=== PATIENT | male | born 1965 | race Caucasian/White ===

== ENCOUNTER → 2019-05-03 | Outpatient (CLI) | payer BC ==
--- NOTE | 2019-05-07 09:22 | ECHOF ---
Referral Reason:R60.9 Edema MEASUREMENTS -------- HEIGHT: 175.3 cm WEIGHT: 113.4 kg BP: 132/72 RVIDd: 3.3 cm (< 3.3) IVSd: 1.4 cm (0.6 - 1.1) LVIDd: 4.9 cm (3.9 - 5.3) LVPWd: 1.5 cm (0.6 - 1.1) IVSs: 1.7 cm LVIDs: 3.2 cm LVPWs: 2.1 cm LAESV Index (A-L): 31.77 ml/m Ao Diam: 3.0 cm (2.0 - 3.7) AV Cusp: 2.0 cm (1.5 - 2.6) LA Diam: 3.6 cm (2.7 - 3.8) MV EXCURSION: 17.701 mm (> 18.000) MV EF SLOPE: 150 mm/s (70 - 150) EPSS: 1.2 cm MV E Arnulfo: 0.95 m/s MV DecT: 191 ms MV A Arnulfo: 0.91 m/s MV E/A Ratio: 1.04 RAP: 5.00 mmHg RVSP: 27.98 mmHg FINDINGS -------- Sinus rhythm. This was a technically adequate study. The left ventricular size is normal. There is mild concentric left ventricular hypertrophy. There is normal global left ventricular contractility. Overall left ventricular systolic function is nor mal with, an EF between 60 - 65 %. The diastolic filling pattern is normal for the age of the patie nt 9.42. The right ventricle is normal in size. LA is midly dilated 29-33ml/m2. The right atrial size is normal. Interatrial and interventricular septum intact. The aortic valve was not well visualized. There is no evidence of aortic regurgitation. There is no evidence of aortic stenosis. Mild mitral regurgitation is present. Mild tricuspid regurgitation present. There is no evidence of pulmonary hypertension. The right v entricular systolic pressure, as measured by Doppler, is 27.98mmHg. There is no pulmonic regurgitation present. The aortic root size is normal. Normal inferior vena cava with normal inspiratory collapse consistent with estimated right atrial pre ssure of 5 mmHg. CONCLUSIONS -------- 1. Sinus rhythm. 2. This was a technically adequate study. 3. The left ventricular size is normal. 4. There is mild concentric left ventricular hypertrophy. 5. There is normal global left ventricular contractility. 6. Overall left ventricular systolic function is normal with, an EF between 60 - 65 %. 7. The diastolic filling pattern is normal for the age of the patient 9.42 8. The right ventricle is normal in size. 9. LA is midly dilated 29-33ml/m2. 10. The right atrial size is normal. 11. Interatrial and interventricular septum intact. 12. The aortic valve was not well visualized. 13. There is no evidence of aortic regurgitation. 14. There is no evidence of aortic stenosis. 15. Mild mitral regurgitation is present. 16. Mild tricuspid regurgitation present. 17. There is no evidence of pulmonary hypertension. 18. The right ventricular systolic pressure, as measured by Doppler, is 27.98mmHg. 19. There is no pulmonic regurgitation present. 20. The aortic root size is normal. 21. Normal inferior vena cava with normal inspiratory collapse consistent with estimated right atrial pressure of 5 mmHg. HAND SALTER: Roxane Gaitan RDCS
== END | disposition home or self-care (01) ==
LOC: RADECHMAIN 12:35
PROVIDERS: ATTEND Internal Medicine Hematology & Oncology
DX: I08.1 Rheumatic disorders of both mitral and tricuspid valves (principal)
CPT/HCPCS: 93306

== ENCOUNTER → 2019-08-15 | Outpatient (CLI) | payer BC ==
--- NOTE | 2019-08-15 13:20 | XR ---
Bilateral hands HISTORY: Bilateral hand pain 2 views of each hand are submitted There is widening of the scapholunate distance in the right wrist. Some sclerotic density present dis anuj metaphysis of the right radius. Bone mineralization is otherwise maintained. IMPRESSION: Scapholunate distance appears increased right wrist with associated sclerosis distal righ t radial metaphysis, correlate for history of trauma, scapholunate dissociation.
== END | disposition home or self-care (01) ==
LOC: RADXRMAIN 08:31
PROVIDERS: ATTEND Orthopaedic Surgery
DX: M79.642 Pain in left hand (principal); M79.641 Pain in right hand

== ENCOUNTER → 2019-09-07 | Day surgery (SDC) | payer BC ==
[2019-09-05 13:05] VITALS: BMI 35.4
--- NOTE | 2019-09-06 11:14 | HP ---
HISTORY AND PHYSICAL CHIEF COMPLAINT: Right hand pain and numbness. 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 It has worsened recently. He notes diffuse numbness in all digits. It bothers him with gripping and grasping and at night. He has tried bracing and medications for this. PAST MEDICAL HISTORY: Significant for hypercholesterolemia, hypertension, type 2 diabetes, and chronic myeloid leukemia, coronary artery disease. PAST SURGICAL HISTORY: Significant for cardiac stent placement and shoulder arthroscopy as well as appendectomy. CURRENT MEDICATIONS: 1. Bupropion. 2. Metoprolol. 3. Atorvastatin. 4. Enalapril. 5. Gabapentin. 6. Requip. ALLERGIES: He denies drug allergies. FAMILY HISTORY: Noncontributory. SOCIAL HISTORY: Negative for current tobacco or alcohol use. REVIEW OF SYSTEMS: Sixteen-point review of systems otherwise reviewed and is noncontributory. PHYSICAL EXAMINATION: On examination, the patient is approximately 5 feet 9 inches, 240 pounds of endomorphic habitus. HEENT exam is nonfocal. NECK: Supple. He has painless cervical spine motion with negative Spurling's. On examination of the right wrist, he has a positive Tinel's at the carpal canal. He has a positive carpal tunnel compression test. Light touch is diffusely diminished in the right digits. Adductor pollicis brevis strength is 5 minus over 5. He has no significant thenar wasting. EMG report right upper extremity shows median motor latency at the carpal canal 4.22, sensory latency 4.08. IMPRESSION: 1. Symptomatic right carpal tunnel syndrome. 2. History of chronic myeloid leukemia. 3. Zml-rahfmnr-kuvlkziuc diabetes. RECOMMENDATIONS: I talked to the patient at length regarding his condition along with treatment options. At this point, he notes he is quite symptomatic and opts to proceed with surgery. We will plan to proceed with right carpal tunnel release utilizing local anesthetic and IV sedation. Risks and benefits were discussed at length in layman's terms. MMODL / IJN: [id number] /
[~2019-09-07] MED LIST: BUPIVACAINE (PF) 0.25% 30 ML VIAL SQ ONE; DEXAMETHASONE SOD PHOSPHATE 10 MG/ML 1 ML VIAL IV ONE; HYDROmorphone 0.5 MG/0.5 ML SYRINGE IVP PRN; LACTATED RINGERS 1,000 ML IV SCH; LIDOCAINE 1% 20 ML VIAL (10MG/ML) FOR IV START INTRADERMA PRN; LIDOCAINE 1% INJ 10MG/ML (20 ML MDV) ONE; MIDAZOLAM 2 MG/2 ML VIAL IV PRN; MIDAZOLAM 2 MG/2 ML VIAL ONE; ONDANSETRON 4 MG/2 ML VIAL IVP ONE; PROPOFOL 10 MG/ML 20 ML VIAL IV ONE; SCOPOLAMINE 1.5MG/72HR PATCH TRANSDERM ONE; fentaNYL (PF) 50 MCG/ML 2 ML AMP ONE
[2019-09-07 11:26] VITALS: TEMP 97.5
--- NOTE | 2019-09-07 12:18 | P.OP ---
Date of Procedure: 09/07/19 Preoperative Diagnosis: Symptomatic right carpal tunnel syndrome Postoperative Diagnosis: Same Procedure(s) Performed: Right carpal tunnel release Anesthesia: MAC, local Surgeon: Tom Saravia Estimated Blood Loss (ml): 1 Pathology: none sent Condition: stable Disposition: PACU Indications for Procedure: The patient's a 53-year-old male presents with persistent right hand pain and numbness secondary to carpal tunnel syndrome despite conservative measures. A discussion of the risks and benefits of operative intervention versus continued conservative measures was made with the patient. He opted to proceed. Specific risks of the surgery to include infection, neurovascular injury, development of blood clots, possible incomplete resolution of symptoms, possible recurrence of symptoms and need for subsequent procedures was discussed. Informed consent was obtained. Operative Findings: As below Description of Procedure: The patient was brought to the operating room, and after induction of IV sedation the right upper extremity was prepped and draped in normal fashion. The proposed incision site was outlined skin marker in line with the radial aspect the fourth ray extending from the volar wrist crease distally 2-1/2 cm. One quarter percent plain Marcaine was injected into the proposed incision site. 9 mL was utilized. The tourniquet was inflated to 250 mmHg. The skin incision was then made. The skin was incised sharply. Subcutaneous tissues were divided sharply the superficial palmar fascia was identified and split in line with the skin incision. The transverse carpal ligament was identified and transected under direct visualization distally to level the palmar fat pad. Proximal was taken level of the volar wrist crease. A plane above and below the transverse carpal ligament was then bluntly developed with tenotomies. The confluence of the distal forearm fascia and the transverse carpal ligament was then transected under direct visualization proximally with the tines pointed in the ulnar direction. I felt this was adequate proximal release. Neural lysis was not performed. The wound was irrigated with normal saline. Electrocautery was used for hemostasis. The skin was reapproximated with simple 3-0 nylon sutures. A sterile dressing was applied. The tourniquet was deflated with less than 15 minutes total tourniquet time. Patient was awoken from sedation and transferred to the recovery room in good condition. Blood loss was estimated 1 mL. No complications were incurred. Sponge and needle counts were correct at the end the case.
[2019-09-07 12:21] VITALS: RESP 17
[2019-09-07 12:29] VITALS: BP 114/60; PULSE 70
== END | disposition home or self-care (01) ==
LOC: OR 10:42
PROVIDERS: ATTEND Orthopaedic Surgery
DX: G56.01 Carpal tunnel syndrome, right upper limb (principal); E78.00 Pure hypercholesterolemia, unspecified; I10 Essential (primary) hypertension; E11.9 Type 2 diabetes mellitus without complications; C92.10 Chronic myeloid leukemia, BCR/ABL-positive, not having achieved remission; I25.10 Atherosclerotic heart disease of native coronary artery without angina pectoris; E78.5 Hyperlipidemia, unspecified; G25.81 Restless legs syndrome; Z87.891 Personal history of nicotine dependence; Z79.899 Other long term (current) drug therapy; Z95.5 Presence of coronary angioplasty implant and graft; Z98.890 Other specified postprocedural states; Z90.49 Acquired absence of other specified parts of digestive tract
CPT/HCPCS: 64721; J2250; J1100; J0690; J2405; J2001; J3010; J2704

== ENCOUNTER → 2019-10-12 | Day surgery (SDC) | payer BC ==
[2019-10-11 09:01] VITALS: BMI 35.4
--- NOTE | 2019-10-11 10:06 | HP ---
HISTORY AND PHYSICAL CHIEF COMPLAINT: Left hand pain and numbness. 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 He has tried medications and bracing. He has noticed difficulty with gripping and grasping along with night symptoms. PAST MEDICAL HISTORY: Significant for hypercholesterolemia, type 2 diabetes, hypertension, and chronic myeloid leukemia. PAST SURGICAL HISTORY: Significant for coronary stent placement, shoulder arthroscopy, appendectomy, and recent right carpal tunnel release. 16 POINT REVIEW OF SYSTEMS: Otherwise reviewed and is noncontributory. CURRENT MEDICATIONS: 1. Metoprolol. 2. Bupropion. 3. Atorvastatin. 4. Enalapril. 5. Gabapentin. 6. Requip. 7. Ropinirole. 8. . He denies drug allergies. FAMILY HISTORY: Noncontributory. SOCIAL HISTORY: Negative for current tobacco or alcohol use. 16-POINT REVIEW OF SYSTEMS: Otherwise reviewed and is noncontributory. PHYSICAL EXAMINATION: On examination, the patient is approximately 5 foot 9, 240 pounds, of endomorphic habitus. HEENT: Exam is nonfocal. NECK: Supple. He has nontender about the left shoulder and elbow. On examination of the left wrist, he has a positive Tinel's over the carpal canal. Carpal tunnel compression test is positive. Adductor pollicis brevis strength is 5-/5. Light touch is grossly intact distally. IMPRESSION: 1. Symptomatic left carpal tunnel syndrome. 2. History of chronic myeloid leukemia. RECOMMENDATIONS: I talked to the patient at length regarding his condition along with treatment options. At this point, he is symptomatic despite conservative measures. After thorough discussion, he opts to proceed with surgery. We will plan to proceed with left carpal tunnel release. Will perform that likely as an outpatient procedure utilizing local anesthetic and IV sedation. Risks and benefits were discussed at length. MMODL / IJN: [id number] /
[~2019-10-12] MED LIST changes: +KETOROLAC 30 MG/ML 1 ML VIAL ONE; +LIDOCAINE 1% 20 ML VIAL (10MG/ML) FOR IV START INTRADERMA ONE; -LIDOCAINE 1% 20 ML VIAL (10MG/ML) FOR IV START INTRADERMA PRN; -LIDOCAINE 1% INJ 10MG/ML (20 ML MDV) ONE
[2019-10-12 10:37] VITALS: RESP 16; TEMP 98.1
--- NOTE | 2019-10-12 12:20 | P.OP ---
Date of Procedure: 10/12/19 Preoperative Diagnosis: symptomatic left carpal tunnel syndrome Postoperative Diagnosis: same Procedure(s) Performed: left carpal tunnel release Anesthesia: MAC, local Surgeon: Tom Saravia Estimated Blood Loss (ml): 1 Pathology: none sent Condition: stable Disposition: PACU Indications for Procedure: The patient's a 53-year-old male who presents with progressive left hand pain and numbness secondary to carpal tunnel syndrome despite conservative measures. A discussion of the risks and benefits of operative intervention versus continued conservative measures was made with patient. He opted proceed with surgery. Operative risks to include infection, neurovascular injury, development of blood clots, possible incomplete resolution of symptoms, possible recurrence of symptoms need for subsequent procedures was discussed. Informed consent was obtained. Operative Findings: as below Description of Procedure: The patient was brought to the operating room, and after induction of IV sedation the left upper extremity was prepped and draped in normal fashion. The proposed incision site was outlined skin marker in line with the radial aspect the fourth ray extending from the volar wrist crease distally 2-1/2 cm. One quarter percent plain Marcaine was injected into the proposed incision site. 9 mL was utilized. The tourniquet was inflated to 250 mmHg. The skin incision was then made. The skin was incised sharply. Subcutaneous tissues were divided sharply the superficial palmar fascia was identified and split in line with the skin incision. The transverse carpal ligament was identified and transected under direct visualization distally to level the palmar fat pad. Proximal was taken level of the volar wrist crease. A plane above and below the transverse carpal ligament was then bluntly developed with tenotomies. The confluence of the distal forearm fascia and the transverse carpal ligament was then transected under direct visualization proximally with the tines pointed in the ulnar dire ction. I felt this was adequate proximal release. Neural lysis was not performed. The wound was irrigated with normal saline. Electrocautery was used for hemostasis. The skin was reapproximated with simple 3-0 nylon sutures. A sterile dressing was applied. The tourniquet was deflated with less than 15 minutes total tourniquet time. Patient was awoken from sedation and transferred to the recovery room in good condition. Blood loss was estimated 1 mL. No complications were incurred. Sponge and needle counts were correct at the end the case.
[2019-10-12 12:37] VITALS: BP 105/59; PULSE 62
== END | disposition home or self-care (01) ==
LOC: OR 09:59
PROVIDERS: ATTEND Orthopaedic Surgery
DX: G56.02 Carpal tunnel syndrome, left upper limb (principal); E78.00 Pure hypercholesterolemia, unspecified; E11.9 Type 2 diabetes mellitus without complications; I10 Essential (primary) hypertension; C92.10 Chronic myeloid leukemia, BCR/ABL-positive, not having achieved remission; Z95.5 Presence of coronary angioplasty implant and graft; E78.5 Hyperlipidemia, unspecified; Z79.899 Other long term (current) drug therapy
CPT/HCPCS: 64721; J2250; J1100; J2405; J3010; J1885; J2704

== ENCOUNTER → 2019-12-12 | Outpatient (CLI) | payer BC ==
[2019-12-12 12:54] LABS: C Reactive Protein <5.0 mg/L (<10.0)
--- NOTE | 2019-12-12 16:15 | XR ---
Bilateral feet history: Bilateral tarsal pain 3 views of each foot are submitted on a total 6 images Degenerative changes are present at the metatarsophalangeal joint of the first digit. Bone mineraliza tion, joint spaces and alignment are otherwise maintained. No fracture or dislocation. IMPRESSION: Osteoarthritis first digits.
[2019-12-12 19:08] LABS: Rheumatoid Factor, Qnt 6 IU/mL (0-15)
[2019-12-12 19:41] LABS: Cyclic Citrull Pep IgG Unit 2.1 U/mL; Cyclic Citrullinated Pep IgG NEGATIVE (NEGATIVE)
== END | disposition home or self-care (01) ==
LOC: RADXRMAIN 11:23
PROVIDERS: ATTEND Family Medicine
DX: M19.071 Primary osteoarthritis, right ankle and foot (principal); M19.072 Primary osteoarthritis, left ankle and foot
CPT/HCPCS: 86140; 86200; 86431

== ENCOUNTER → 2020-04-02 | Outpatient (CLI) | payer BC ==
--- NOTE | 2020-04-02 14:57 | XR ---
EXAMINATION TYPE: XR chest 2V DATE OF EXAM: 04/02/2020 COMPARISON: Prior chest 10/26/2015 HISTORY: Chronic myeloid leukemia, I 25.2 TECHNIQUE: Frontal and lateral views of the chest are obtained. FINDINGS: There is blunting of the right costophrenic angle, there may be pleural effusion. No evide nt pneumothorax. Interstitium is increased. The cardiac silhouette size is enlarged, patient is rotat ed. The osseous structures are intact. IMPRESSION: Correlate for possible pulmonary venous hypertension and interstitial edema, possible sm all effusion. A Yellow level critical message alert has been initiated for Jose A Diaz MD via the [employer] System on 04/02/2020 2:54 PM. This message alert has been sent to Jose A Diaz MD via e preferences provided by the clinician for the receipt of Radiology Critical Findings. Message ID [id number].
== END | disposition home or self-care (01) ==
LOC: RADXRMAIN 14:39
PROVIDERS: ATTEND Internal Medicine Hematology & Oncology
DX: C92.10 Chronic myeloid leukemia, BCR/ABL-positive, not having achieved remission (principal); D72.829 Elevated white blood cell count, unspecified; I25.2 Old myocardial infarction; R79.89 Other specified abnormal findings of blood chemistry
CPT/HCPCS: 71046

== ENCOUNTER → 2020-04-09 | Outpatient (CLI) | payer BC ==
--- NOTE | 2020-04-09 10:28 | ECHOF ---
Referral Reason:R60.9 edema MEASUREMENTS -------- HEIGHT: 177.8 cm WEIGHT: 111.1 kg BP: RVIDd: 2.7 cm (< 3.3) IVSd: 1.2 cm (0.6 - 1.1) LVIDd: 4.8 cm (3.9 - 5.3) LVPWd: 1.5 cm (0.6 - 1.1) IVSs: 2.0 cm LVIDs: 3.6 cm LVPWs: 1.8 cm LAESV Index (A-L): 28.43 ml/m Ao Diam: 3.2 cm (2.0 - 3.7) AV Cusp: 1.7 cm (1.5 - 2.6) LA Diam: 3.6 cm (2.7 - 3.8) MV EXCURSION: 16.312 mm (> 18.000) MV EF SLOPE: 157 mm/s (70 - 150) EPSS: 0.7 cm MV E Arnulfo: 1.10 m/s MV DecT: 228 ms MV A Arnulfo: 0.85 m/s MV E/A Ratio: 1.30 RAP: 5.00 mmHg RVSP: 27.49 mmHg FINDINGS -------- Sinus rhythm. This was a technically adequate study. The left ventricular size is normal. There is mild concentric left ventricular hypertrophy. Overa ll left ventricular systolic function is low-normal with, an EF between 50 - 55 %. Basal anterior L V wall motion is hypokinetic. Basal inferolateral hypokinesis. The right ventricle is normal in size. The left atrial size is normal. Normal LA size by volume 22+/-6 ml/m2. The right atrial size is normal. The aortic valve is trileaflet and appears structurally normal. The mitral valve is normal. There is trace mitral regurgitation. The tricuspid valve appears structurally normal. Trace tricuspid regurgitation present. Right whit tricular systolic pressure is normal at < 35 mmHg. There is no pulmonic regurgitation present. The aortic root size is normal. Normal inferior vena cava with normal inspiratory collapse consistent with estimated right atrial pre ssure of 5 mmHg. There is no pericardial effusion. CONCLUSIONS -------- 1. Sinus rhythm. 2. This was a technically adequate study. 3. The left ventricular size is normal. 4. There is mild concentric left ventricular hypertrophy. 5. Overall left ventricular systolic function is low-normal with, an EF between 50 - 55 %. 6. Basal anterior LV wall motion is hypokinetic. 7. Basal inferolateral hypokinesis. 8. The right ventricle is normal in size. 9. The left atrial size is normal. 10. Normal LA size by volume 22+/-6 ml/m2. 11. The right atrial size is normal. 12. The aortic valve is trileaflet and appears structurally normal. 13. The mitral valve is normal. 14. There is trace mitral regurgitation. 15. The tricuspid valve appears structurally normal. 16. Trace tricuspid regurgitation present. 17. Right ventricular systolic pressure is normal at < 35 mmHg. 18. There is no pulmonic regurgitation present. 19. The aortic root size is normal. 20. Normal inferior vena cava with normal inspiratory collapse consistent with estimated right atrial pressure of 5 mmHg. 21. There is no pericardial effusion. MECHANICAL ENGINEERING OFFICER: Pricilla Dupont RDCS
== END | disposition home or self-care (01) ==
LOC: RADECHMAIN 08:15
PROVIDERS: ATTEND Internal Medicine Hematology & Oncology
DX: I08.1 Rheumatic disorders of both mitral and tricuspid valves (principal)
CPT/HCPCS: 93306

== ENCOUNTER → 2020-04-15 | Outpatient (CLI) | payer BC ==
[2020-04-15 17:58] LABS: African American GFR (CKD) 87.7 (60.0-200.0); Non-African American GFR(CKD) 75.7 (60.0-200.0)
== END | disposition home or self-care (01) ==
LOC: LABWHC1 07:33
PROVIDERS: ATTEND Internal Medicine Hematology & Oncology
DX: J44.9 Chronic obstructive pulmonary disease, unspecified (principal); R91.8 Other nonspecific abnormal finding of lung field
CPT/HCPCS: 36415; 82565; 84520

== ENCOUNTER → 2020-04-21 | Outpatient (CLI) | payer BC ==
--- NOTE | 2020-04-21 10:05 | CT ---
EXAMINATION TYPE: CT chest w con DATE OF EXAM: 04/21/2020 COMPARISON: Prior chest x-ray 04/02/2020 HISTORY: Abnormal x-ray CT DLP: 533.4 mGycm Automated exposure control for dose reduction was used. CONTRAST: CT scan of the chest is performed with IV Contrast, patient injected with 100 mL of Isovue 300. FINDINGS: LUNGS: The lungs are grossly clear, there is no concerning parenchymal mass or nodule identified. T here is a right pleural effusion as suspected on plain film.. The tracheobronchial tree is patent. MEDIASTINUM: There are no greater than 1 cm hilar or mediastinal lymph nodes. No pericardial effusi on is seen. There are coronary artery calcifications. AORTA: Ascending aorta measures approximately 4.1 cm. Proximal descending aorta is also ectatic at 3 .2 cm.. OTHER: Probable splenules noted at the level of the spleen hilum.. IMPRESSION: Right pleural effusion is confirmed. Coronary artery disease. Ascending aortic aneurysm. Coronary artery disease.
== END | disposition home or self-care (01) ==
LOC: RADCTMAIN 06:50
PROVIDERS: ATTEND Family Medicine
DX: J90 Pleural effusion, not elsewhere classified (principal); I25.10 Atherosclerotic heart disease of native coronary artery without angina pectoris; I71.2 Thoracic aortic aneurysm, without rupture; J44.9 Chronic obstructive pulmonary disease, unspecified
CPT/HCPCS: 71260; Q9967

== ENCOUNTER 2020-05-01 16:15 | Inpatient (IN) | payer BC ==
[2020-05-01 20:21] LABS: Basophils # (A) 0.1 k/uL (0-0.2); Basophils % (A) 1 %; Eosinophils # (A) 0.2 k/uL (0-0.7); Eosinophils % (A) 3 %; HCT 45.5 % (39.0-53.0); HGB 15.2 gm/dL (13.0-17.5); Lymphocytes % (A) 14 %; MCH 30.1 pg (25.0-35.0); MCHC 33.3 g/dL (31.0-37.0); MCV 90.2 fL (80.0-100.0); Mean Platelet Volume 9.6; Monocytes # (A) 0.5 k/uL (0-1.0); Monocytes % (A) 8 %; Neutrophils % (A) 71 %; Platelet Count 164 k/uL (150-450); RBC 5.05 m/uL (4.30-5.90); RDW 13.9 % (11.5-15.5); WBC 7.1 k/uL (3.8-10.6)
[2020-05-01 20:25] LABS: Prothrombin Time 10.1 sec (9.0-12.0)
[2020-05-01 20:30] LABS: ALT 35 U/L (4-49); AST 39 U/L (17-59); African American GFR (CKD) >90 (>60 ml/min/1.73 sqM); Albumin 4.6 g/dL (3.5-5.0); Alkaline Phosphatase 97 U/L (38-126); Anion Gap 10 mmol/L; Blood Urea Nitrogen 24 mg/dL (9-20); Calcium 9.4 mg/dL (8.4-10.2); Carbon Dioxide 23 mmol/L (22-30); Chloride 104 mmol/L (98-107); Glucose 115 mg/dL (74-99); Non-African American GFR(CKD) 79 (>60 ml/min/1.73 sqM); Potassium 4.5 mmol/L (3.5-5.1); Sodium 137 mmol/L (137-145); Total Bilirubin 0.5 mg/dL (0.2-1.3)
[2020-05-01] MEDS ORDERED: ATORVASTATIN 80 MG TAB PO SCH (21:00)
[2020-05-01] MEDS: NON FORMULARY DRUG (Dasatinib [Sprycel] 100 MG) PO SCH (21:18)
[2020-05-01] MEDS: FUROSEMIDE 20 MG TAB PO SCH (21:26)
[2020-05-01] MEDS: METOPROLOL TARTRATE 25 MG TAB PO SCH (21:26)
[2020-05-01] MEDS: GABAPENTIN 300 MG CAP PO SCH (21:26)
[2020-05-01] MEDS: POTASSIUM CHLORIDE ER 10 MEQ TAB.ER.PRT PO SCH (21:26)
[2020-05-01] MEDS: SODIUM CHLORIDE 0.9% 1,000 ML IV SCH (21:27)
[2020-05-02] MEDS ORDERED: ASPIRIN 325 MG TAB PO STA (07:37)
[2020-05-02] MEDS ORDERED: NITROGLYCERIN SL TABS 0.4 MG TAB SUBLINGUAL PRN ×2 (07:37→11:06)
[2020-05-02] MEDS ORDERED: ATORVASTATIN 80 MG TAB PO STA (07:37)
[2020-05-02] MEDS ORDERED: ALPRAZolam 0.5 MG TAB PO PRN (07:37)
[2020-05-02] MEDS ORDERED: ALPRAZolam 0.25 MG TAB PO PRN (07:37)
[2020-05-02] MEDS ORDERED: SODIUM CHLORIDE 0.9% 1,000 ML in EMPTY BAG 1 BAG IV ONE (07:37)
--- NOTE | 2020-05-02 08:01 | CONS ---
CONSULTATION Mr. Castellano is a 54-year-old male with known history of coronary artery disease, history of chronic myeloid leukemia, followed by Dr. Diaz who presented because of abnormal myocardial perfusion imaging. The patient has underwent a stress test yesterday as an outpatient that was reported showing evidence of prior myocardial infarction involving the inferolateral wall with edgardo-infarct ischemia. His ejection fraction was calculated at 50%. Patient has prior stenting of the right coronary artery in 2004, was readmitted in 2013 with non-STEMI. No occlusion of his right coronary artery, underwent repeat stenting of that vessel. He underwent an echocardiogram performed on 09 of April that revealed a mildly impaired left ventricular systolic function with basal inferolateral wall hypokinesis. He was diagnosed with CML last year, has been receiving chemotherapy and as part of the chemotherapy had evidence of dyspnea and what appears to be fluid overload. He has occasional chest discomfort, not always exertional in pattern. He has no dizziness. No palpitation. Occasional peripheral edema. No PND or clear orthopnea. His activity level has been down. His coronary risk factors are remarkable for hypertension, hyperlipidemia. He is nondiabetic, nonsmoker at this time. MEDICATIONS: His medications include aspirin, Lipitor 80 mg daily, diclofenac, enalapril 10 mg daily, Lasix 20 mg twice a day, gabapentin, metoprolol tartrate 25 mg twice a day, potassium and Wellbutrin. REVIEW OF SYSTEMS: RESPIRATORY SYSTEM: He has occasional dyspnea on exertion. No recent wheezing or cough. GI SYSTEM: No recent GI bleeding. No peptic ulcer disease. SYSTEM: No dysuria or hematuria. NERVOUS SYSTEM: No stroke or seizure. PHYSICAL EXAMINATION: He is a 54-year-old male, alert, oriented, in no apparent distress. Blood pressure 102/60 with the heart rate in the 60s. HEAD: Normocephalic. EYES: Sclerae anicteric. NECK: Good carotid upstroke. No bruit. No jugular venous distention. CHEST: Clear to auscultation. HEART: Regular rate and rhythm. S1, S2. No S3. No S4. No murmur or rub. ABDOMEN: Soft, nontender. Positive bowel sounds. No organomegaly. EXTREMITIES: No edema. Intact distal pulses. LAB DATA: Lab data revealed hemoglobin 15.2, white blood cell of 7.1. BUN and creatinine of 24 and 1.07. Troponin less than 0.012. IMPRESSION: 1. Abnormal myocardial perfusion imaging with evidence of edgardo-infarct ischemia probably correlating with the right coronary artery infarct. 2. Prior history of myocardial infarction and stenting of the right coronary artery. 3. Chronic myeloid leukemia. 4. Hyperlipidemia. 5. Hypertension. RECOMMENDATION: I have recommended to proceed with coronary angiography to assess his status and guide his treatment. The rationale behind the procedure, its risks and the complications were discussed with the patient who is in full understanding and agreement. Depending on the results of testing, further recommendation will be made. Thank you for this consult. We will follow with you. MMSUSANL / IJN: [id number] /
[2020-05-02] MEDS: LISINOPRIL 20 MG TAB PO SCH (09:08)
[2020-05-02] MEDS: POTASSIUM CHLORIDE ER 10 MEQ TAB.ER.PRT PO SCH ×2 (09:08→20:27)
[2020-05-02] MEDS: MULTIVITAMINS, THERA 1 EACH TAB PO SCH (09:08)
[2020-05-02] MEDS: METOPROLOL TARTRATE 25 MG TAB PO SCH ×2 (09:08→20:27)
[2020-05-02] MEDS: FUROSEMIDE 20 MG TAB PO SCH (09:08)
[2020-05-02] MEDS: GABAPENTIN 300 MG CAP PO SCH ×2 (09:09→23:51)
[2020-05-02] MEDS: buPROPion XL 300 MG TAB.ER.24H PO SCH (09:09)
[2020-05-02] MEDS ORDERED: LIDOCAINE 1% INJ 10MG/ML (20 ML MDV) ONE (09:46)
[2020-05-02] MEDS ORDERED: HEPARIN SODIUM 1,000 UN/ML (10ML VL) ONE (09:46)
[2020-05-02] MEDS ORDERED: fentaNYL (PF) 50 MCG/ML 2 ML AMP ONE (09:46)
[2020-05-02] MEDS ORDERED: VERAPAMIL 2.5 MG/ML 2 ML AMP ONE (09:46)
[2020-05-02] MEDS ORDERED: fentaNYL (PF) 50 MCG/ML 2 ML AMP IV ONE (10:08)
[2020-05-02] MEDS ORDERED: IV FLUID CONTINUATION 300 ML IV ONE (10:10)
[2020-05-02] MEDS ORDERED: LIDOCAINE 1% INJ 10MG/ML (20 ML MDV) SQ ONE (10:10)
[2020-05-02] MEDS ORDERED: MIDAZOLAM 2 MG/2 ML VIAL IVP ONE (10:12)
[2020-05-02] MEDS ORDERED: VERAPAMIL SYRINGE (5 MG/10 ML) INTRAARTER ONE (10:13)
[2020-05-02] MEDS ORDERED: CLOPIDOGREL 75 MG TAB ONE (10:25)
[2020-05-02] MEDS ORDERED: BIVALIRUDIN BOLUS 250 MG/50 ML IV ONE (10:25)
[2020-05-02] MEDS ORDERED: BIVALIRUDIN 250 MG in SODIUM CHLORIDE 0.9% 50 ML IV ONE (10:27)
[2020-05-02] MEDS ORDERED: CLOPIDOGREL 75 MG TAB PO ONE (10:27)
[2020-05-02] MEDS ORDERED: NITROGLYCERIN 1000MCG/10ML SYRINGE INTRACORON ONE (10:30)
--- NOTE | 2020-05-02 10:31 | HP ---
HISTORY AND PHYSICAL A 54-year-old white male with known history of coronary artery disease with a stent in his LAD in 1997 and 2003 again with a second stent placed in the LAD inside his first one he states. No cardiac workup since then. He sees Dr. Marcum for chronic myeloid leukemia. He has been having chest pain daily on a daily basis multiple times. He had a stress test yesterday which showed edgardo-infarct ischemia over his prior LAD stents. Ejection fraction was 50%. Due to unstable angina, possible LAD stenosis, admitted in the hospital. Discussed case with Dr. Hernandez, knitter wire mesh about a direct admit for heart catheterization tomorrow. No PND, orthopnea, hypertension, dyslipidemia. He does take home medicines Lipitor 80, Avapro 10 daily, Lasix 20 twice a day, gabapentin, metoprolol, potassium, Wellbutrin. A 14-point review of systems positive for chest pain multiple times a day. He is a 54-year-old white male. PHYSICAL EXAMINATION: Vital signs appear stable. Head normocephalic, atraumatic. Pupils equal, round, reactive. Lungs are clear. Heart S1, S2. Abdomen is soft. EXTREMITIES: No cyanosis, clubbing, edema. BUN and creatinine are 24, 1.07. Troponin is negative. ischemia around an abnormal stress test. Unstable angina. Prior history of myocardial infarction, chronic myeloid leukemia, dyslipidemia, hypertension. PLAN: Hopefully will be heart catheterization today by Cardiology. MMODL / IJN: [id number] /
[2020-05-02] MEDS ORDERED: IOPAMIDOL-370 100ML BTL INJ ONE (10:51)
[2020-05-02] MEDS ORDERED: RX INFO: IV CONTRAST WAS GIVEN 1 EACH MISC MISCELLANE PRN (11:06)
[2020-05-02] MEDS ORDERED: MAG HYDROX/AL HYDROX/SIMETH 30 ML CUP PO PRN (11:06)
[2020-05-02] MEDS ORDERED: ATROPINE SULFATE 0.1 MG/ML 10ML SYRINGE IV PRN (11:06)
[2020-05-02] MEDS ORDERED: ZOLPIDEM 5 MG TAB PO PRN (11:06)
[2020-05-02] MEDS ORDERED: SODIUM CHLORIDE 0.9% 1,000 ML IV SCH (11:15)
--- NOTE | 2020-05-02 13:37 | CC ---
CARDIAC CATHETERIZATION REPORT CARDIAC CATHETERIZATION PROCEDURE NOTE: Mr. Castellano is a 54-year-old male with known history of coronary artery disease, status post percutaneous revascularization in 2004 and 2013 on the right coronary artery, who has been complaining of occasional chest discomfort. He underwent myocardial perfusion imaging that revealed evidence of edgardo-infarct ischemia in the right coronary artery territory. In view of that, recommendation made regarding cardiac catheterization. The procedures, risks, and complication were discussed with the patient who is in full understanding and agreement. PROCEDURE: Patient was brought to the catholic priest in a fasting semi-sedated state after receiving fentanyl and Benadryl and achieving moderate conscious sedated state. Using Xylocaine anesthesia and Seldinger technique, a 6-Argentine sheath was introduced in the right radial artery. Selective right and left coronary angiography performed using 5-Argentine 4 bend right and left Leonel catheter. Multiple views of the coronary artery including hemiaxial views were obtained. Following that, 5-Argentine tight pigtail catheter introduced in the left ventricle and pressures were calculated. Following that, catheter was removed, images were reviewed. FINDINGS: LEFT MAIN: This is a short size vessel, bifurcating into left circumflex, left anterior descending artery. Left main coronary artery has no evidence of high-grade stenosis. LEFT ANTERIOR DESCENDING ARTERY: This is a large-sized vessel, reaching toward the apex with a wraparound apex segment, giving rise to 2 diagonal branches, after the takeoff of the second diagonal branch, there is a 20% to 30% plaque, the vessel is calcified. The rest of the vessel has no high-grade stenosis. LEFT CIRCUMFLEX: This is a nondominant small vessel, giving rise to a small obtuse marginal branch. The left circumflex as well as branches have no evidence of obstructive coronary artery disease. RIGHT CORONARY ARTERY: This is a large dominant vessel, bifurcating distally into PDA and posterolateral segment and branches. The stented segment in the distal segment of the right coronary artery is patent in the mid segment of the RCA after the takeoff of the acute marginal branch, there is a 70% plaque. The proximal segment has intimal disease up to 30%. LEFT VENTRICULOGRAM: Left ventriculogram was not performed. HEMODYNAMICS: There was no gradient across the aortic valve. The left ventricular end- diastolic pressure was 14-16 mmHg. CONCLUSION: 1. Significant stenosis in the mid right coronary artery. 2. Mild disease in the LAD. RECOMMENDATION: In view of finding anatomy, I recommend proceeding with angioplasty and stenting of the right coronary artery. The procedures, risks, and complication were discussed with the patient, who is in full understanding and agreement. MMRUBENS / ALAINAN: [id number] /
[2020-05-02 14:39] VITALS: RESP 16
--- NOTE | 2020-05-02 15:40 | PTCA ---
PERCUTANEOUSTRANS CORORONARY ANGIOGRAPHY Mr. Castellano is a 54-year-old male with known history of coronary artery disease who presented with symptoms of chest discomfort and abnormal myocardial perfusion imaging, underwent cardiac catheterization, was found to have significant stenosis in the mid right coronary artery. In view of that, recommendations were made regarding angioplasty and stenting. The procedures, risks, and complication were discussed with the patient who is in full understanding and agreement. PROCEDURE: Using an FR4 guiding catheter, the right coronary ostium was cannulated. Following that, a 0.014 balanced medium weight J-wire was advanced across the lesion and positioned distally. At that point, attempt to advance a 4.0 x 15 mm Xience Estephanie stent were unsuccessful. That stent was removed and another 0.014 balanced medium weight J-wire was advanced and in spite of that, there was inability to advance the stent in the proximal segment. At that point, the stent was removed and one of the wires was removed and a Guidezilla catheter was advanced and with the help of the Guidezilla catheter, the stent was advanced, deployed and post-dilated at 16 atmospheres. After the last inflation, after appropriate wait, the balloon and the guidewire were withdrawn back in the guiding catheter. Images were obtained and repeated. Those images reveal stable successful stenting. At that point, the guiding catheter, the balloon and the guidewire were removed. The sheath was removed. Hemostasis was obtained with deployment of a TR band. There was no immediate complication. Patient is returned to his room in stable condition. Of note, the patient received Angiomax per protocol as well as oral loading dose of clopidogrel. He had chest discomfort with the inflation that resolved at the end of the procedure. RESULTS: Successful stenting of the mid right coronary artery with reduction of stenosis from 70% to 0%. RECOMMENDATION: Patient will be continued on aspirin, Plavix and statin. The importance of dual antiplatelet treatment were discussed with the patient and he is full understanding and agreement. Duration of the procedure is 39 minutes. MMODL / IJN: [id number] /
--- NOTE | 2020-05-02 15:43 | LTR ---
DATE OF SERVICE: 05/02/2020 RE: Deoln Castellano Dear Dr. Richardson; I had the pleasure to perform cardiac catheterization on Mr. Castellano at [facility] on May 02, 2020 and a full copy of the procedure note will be forwarded to you. In brief, he was found to have critical stenosis involving the mid right coronary artery and underwent successful stenting of that vessel using a drug-eluting stent. I am hopeful that this procedure will stabilize his status. Thank you again for allowing me to participate in your patient's personal care. Please feel free to call for any questions. Sincerely yours, MD SAIGE PearceL / ALAINAN: [id number] /
--- NOTE | 2020-05-02 16:16 | CDI ---
Documentation Clarification Form Date: 05/02/2020 CDS: Melissa Chew, CCS, CCDS Admit Date: 05/02/2020 Patient Name: Delon Castellano Discharge Date: ATTENTION: The Clinical Documentation Specialists (CDI) and [facility] Coding Staff appreciate your assistance in clarifying documentation. Please respond to the clarification below the line at the bottom and electronically sign. The CDI & [facility] Coding staff will review the response and follow-up if needed. Please note: Queries are made part of the Legal Health Record. If you have any questions, please contact the author of this message via ITS. Dear Dr. Lily Willett: Per the 05/02 History & Physical: "He has been having chest pain daily on a daily basis multiple times. He had a stress test yesterday which showed edgardo-infarct ischemia over his prior LAD stents. Ejection fraction was 50%." Per the 05/02 Cardiology Consult: "Abnormal myocardial perfusion imaging with evidence of edgardo-infarct ischemia probably correlating with the right coronary artery infarct." Patient History/Risk Factors: DE & stenting of RCA, Chronic myeloid leukemia, Hyperlipidemia, Hypertension. Clinical Indicators: Patient was a direct admit with Unstable Angina for a heart catheterization. 05/02: Left Heart Catheterization: Significant stenosis in mid RCA, Mild disease in LAD. 05/02 PTCA w/Stent: Successful stenting of mid RCA with reduction in stenosis 70% - 0%. Troponin 05/01 & 05/02: <0.012, <0.012, <0.012 Treatment: Procedures as described above, IV fluid 1,000 mls @ 50 mls/hr, po Lipitor, po Lasix, po Neurontin, po Lopressor, po KDur. In order to capture the severity of condition and necessary documentation specificity, please clarify: Type of Infarction: o STEMI o NSTEMI o Unable to determine o Other Condition, please specify XXX no mi Episode of Care: o Initial Episode o Subsequent Episode o Unable to determine o Other, please specify Age of infarction if known o Acute DE (within the last 4 weeks) o Subsequent DE (another DE within 4 weeks) o New Acute DE - (another DE after 4 weeks) o XXXX Old DE (DE more than 4 weeks old) Specific date if known: o Unable to determine Site of myocardial injury, if known: o Anterior wall o Inferior wall XXXX o Lateral wall o Posterior wall o Septal wall o Other, please specify o Unable to determine (Last Revision: July 2017) MTDD
[2020-05-02] MEDS: SODIUM CHLORIDE 0.9% 1,000 ML IV SCH (20:14)
[2020-05-02] MEDS: NON FORMULARY DRUG (Dasatinib [Sprycel] 100 MG) PO SCH (20:40)
[2020-05-03 07:02] LABS: African American GFR (CKD) >90 (>60 ml/min/1.73 sqM); Anion Gap 6 mmol/L; Blood Urea Nitrogen 18 mg/dL (9-20); Calcium 8.7 mg/dL (8.4-10.2); Carbon Dioxide 26 mmol/L (22-30); Chloride 107 mmol/L (98-107); Glucose 97 mg/dL (74-99); Non-African American GFR(CKD) 81 (>60 ml/min/1.73 sqM); Potassium 4.7 mmol/L (3.5-5.1); Sodium 139 mmol/L (137-145)
[2020-05-03] MEDS: MULTIVITAMINS, THERA 1 EACH TAB PO SCH (09:00)
[2020-05-03] MEDS ORDERED: CLOPIDOGREL 75 MG TAB PO SCH (09:00)
[2020-05-03] MEDS ORDERED: ASPIRIN 81 MG PO SCH ×2 (09:00)
[2020-05-03] MEDS ORDERED: FUROSEMIDE 20 MG TAB PO SCH (09:00)
[2020-05-03] MEDS: POTASSIUM CHLORIDE ER 10 MEQ TAB.ER.PRT PO SCH (09:01)
[2020-05-03] MEDS: GABAPENTIN 300 MG CAP PO SCH (09:01)
[2020-05-03] MEDS: METOPROLOL TARTRATE 25 MG TAB PO SCH (09:01)
[2020-05-03] MEDS: LISINOPRIL 20 MG TAB PO SCH (09:01)
[2020-05-03] MEDS: buPROPion XL 300 MG TAB.ER.24H PO SCH (09:02)
[2020-05-03 11:19] VITALS: BP 157/92; PULSE 63; TEMP 98.3
[2020-05-03 11:31] VITALS: BMI 35.2
--- NOTE | 2020-05-03 15:30 | P.PN ---
Subjective Progress Note Date: 05/03/20 History of present illness: This is a 54-year-old male with past medical history of coronary artery disease, chronic myeloid leukemia under the care of Dr. Welch. He under went a stress test as an outpatient upon evidence of prior IL involving the inferior lateral wall and P rate infarct ischemia. Ejection fraction was calculated at 50%. He has had prior stenting of the right coronary artery and 2004 and was admitted in 2013 with non-ST elevated myocardial infarction with no occlusion of his right coronary artery, underwent repeat stenting of that vessel. Echocardiogram on April 09 revealed mildly impaired left ventricular systolic function with basal inferior lateral wall hypokinesis. Patient has been on chemotherapy for CML since diagnosed last year. There was noted evidence of dyspnea that was thought to be fluid overload. He occasionally has chest discomfort not always exertional in pattern. The found significant stenosis in the mid right coronary artery status post stenting. Patient is postop day #1. He denies having any chest pain or shortness of breath at this time. He has been ambulatory in the hallway with no lightheadedness or dizzines s. BUN 18 and creatinine 1.04. Physical examination: Gen: This is a 54-year-old male. He is resting in a recliner and appears to be comfortable and in no acute distress.] VS: Afebrile, heart rate 63, blood pressure 157/92, pulse ox 97% on room air. HEENT: Head is atraumatic, normocephalic. Pupils equal, round. Sclerae is anicteric. NECK: Supple. No JVD. No lymphadenopathy. No thyromegaly. LUNGS: Clear to auscultation. No wheezes or rhonchi. No intercostal retractions. HEART: Regular rate and rhythm. No murmur. ABDOMEN: Soft. Bowel sounds are present. No masses. No tenderness. EXTREMITIES: No pedal edema. No calf tenderness. NEUROLOGICAL: Patient is awake, alert and oriented x3. Cranial nerves 2 through 12 are grossly intact. Assessment: Abnormal myocardial perfusion imaging with evidence of. Infarct ischemia History of myocardial infarction stenting of the right coronary artery Chronic myeloleukemia Hyperlipidemia Hypertension Plan: The patient is cleared for discharge home Home medications have been reviewed and prescription for Plavix has been sent to his pharmacy Follow-up with Dr. Marroquin in one week. Nurse practitioner note has been reviewed, I agree with documented findings and plan of care. Patient was seen and examined. Objective - Vital Signs Vital signs: Vital Signs Temp 98.3 F 05/03/20 11:13 Pulse 63 05/03/20 11:13 Resp 16 05/03/20 11:13 BP 157/92 05/03/20 11:13 Pulse Ox 97 05/03/20 11:13 Intake & Output 05/02/20 05/03/20 05/03/20 18:59 06:59 18:59 Intake Total 980.5 720 Balance 980.5 720 Weight 108.1 kg 108.1 kg Intake: IV 331.5 Intake, IV Titration 409 Amount Sodium Chloride 0.9% 1, 300 000 ml @ 50 mls/hr IV . Q20H [facility] Rx#:[id number] Sodium Chloride 0.9% 1, 109 000 ml In Empty Bag 1 bag @ 1 ML/KG/HR 109 mls/hr IV .[id number] [facility] Rx#: [id number] Oral 240 720 Other: Voiding Method Toilet Toilet Toilet # Voids 1 2 - Labs CBC & Chem 7: 05/01/20 19:44 05/03/20 06:04
[2020-05-03] MEDS ORDERED: ATORVASTATIN 80 MG TAB PO SCH (21:00)
== END 2020-05-03 12:28 | disposition home or self-care (01) | DRG 247 ==
LOC: 1SOBS 18:43 → 3SCARD 05-02 12:03 → OBSVTOIN 05-02 15:06
PROVIDERS: ADMIT Family Medicine; ATTEND Family Medicine
PROC: 027034Z Dilation of Coronary Artery, One Artery with Drug-eluting Intraluminal Device, Percutaneous Approach (ICD-10-PCS; principal; 2020-05-02 09:00)
PROC: B2111ZZ Fluoroscopy of Multiple Coronary Arteries using Low Osmolar Contrast (ICD-10-PCS; principal; 2020-05-02 09:00)
PROC: 4A023N7 Measurement of Cardiac Sampling and Pressure, Left Heart, Percutaneous Approach (ICD-10-PCS; principal; 2020-05-02 09:00)
DX: I25.110 Atherosclerotic heart disease of native coronary artery with unstable angina pectoris (principal); C92.10 Chronic myeloid leukemia, BCR/ABL-positive, not having achieved remission; Z11.59 Encounter for screening for other viral diseases; I25.2 Old myocardial infarction; I10 Essential (primary) hypertension; E78.5 Hyperlipidemia, unspecified; Z95.5 Presence of coronary angioplasty implant and graft; Z79.82 Long term (current) use of aspirin; Z79.899 Other long term (current) drug therapy
CPT/HCPCS: 80048; 80053; 84484; 85025; 85347; 85610; 93458

== ENCOUNTER → 2020-05-01 | Outpatient (CLI) | payer BC ==
[~2020-05-01] MED LIST changes: -BUPIVACAINE (PF) 0.25% 30 ML VIAL SQ ONE; -DEXAMETHASONE SOD PHOSPHATE 10 MG/ML 1 ML VIAL IV ONE; -HYDROmorphone 0.5 MG/0.5 ML SYRINGE IVP PRN; -KETOROLAC 30 MG/ML 1 ML VIAL ONE; -LACTATED RINGERS 1,000 ML IV SCH; -LIDOCAINE 1% 20 ML VIAL (10MG/ML) FOR IV START INTRADERMA ONE; -MIDAZOLAM 2 MG/2 ML VIAL IV PRN; -MIDAZOLAM 2 MG/2 ML VIAL ONE; -ONDANSETRON 4 MG/2 ML VIAL IVP ONE; -PROPOFOL 10 MG/ML 20 ML VIAL IV ONE; +REGADENOSON 0.4 MG/5 ML SYRINGE IV ONE; -SCOPOLAMINE 1.5MG/72HR PATCH TRANSDERM ONE; -fentaNYL (PF) 50 MCG/ML 2 ML AMP ONE
--- NOTE | 2020-05-01 12:32 | NM ---
"EXAMINATION TYPE: NM stress lexiscan cardiolite DATE OF EXAM: 05/01/2020 COMPARISON: 'S exam 10/27/2015 HISTORY: Coronary artery disease, I 25.10 TECHNIQUE: After the intravenous administration of 9.8 mCi Tc 99m Sestamibi - Cardiolite resting SPE CT images acquired 65 minutes post injection. The patient received 0.4mg Lexiscan, 25.2 mCi Tc 99m Sestamibi - Stress images obtained [address] injection FINDINGS: Review of stress and rest SPECT images demonstrates decreased uptake along the inferolateral left whit tricle which is progressed compared to prior exam, at this level there is some decreased uptake at st ress as compared to rest images additionally noted. Gated analysis shows normal wall motion with an e stimated left ventricular ejection fraction of 50 %. IMPRESSION: Findings consistent with prior infarct with edgardo-infarct pharmacologically induced left ventricular m yocardial ischemia. A Yellow level critical message alert has been initiated for Thierry Richardson MD via the [employer] 0 | Critical Results System on 05/01/2020 12:29 PM. This message alert has been sent to Thierry Richardson MD via the preferences provided by the clinician for the receipt of Radiology Critical Findings. [facility] ID [id number]."
--- NOTE | 2020-05-01 13:06 | EST ---
EXERCISE STRESS AGE: 54 SEX: M HT: 5'8" WT: 280 PROTOCOL: Lexiscan Cardiolite study HEART RATE REST: 57 BLOOD PRESSURE REST: 130/57 MAXIMUM HEART RATE ACHIEVED: 77 MAXIMUM BLOOD PRESSURE: 130/57 85% MPHR: 141 100% MPHR: 166 CLINICAL INFORMATION: Baseline rhythm is a sinus mechanism, rate of 57, normal axis and intervals. Normal echocardiogram. Baseline blood pressure 130/57 mmHg. Patient received injection of Lexiscan. Electrocardiograph monitoring revealed occasional single PVCs. Cardiolite was injected per protocol. CONCLUSION: 1. Nondiagnostic electrocardiograph stress testing. 2. Occasional single PVCs. 3. Nuclear images will be reported separately. MMODL / IJN: [id number] /
== END | disposition home or self-care (01) ==
LOC: RADNMMAIN 08:13
PROVIDERS: ATTEND Family Medicine
DX: I25.89 Other forms of chronic ischemic heart disease (principal); I21.9 Acute myocardial infarction, unspecified; I25.10 Atherosclerotic heart disease of native coronary artery without angina pectoris
CPT/HCPCS: 93017; 78452; A9500; J2785

== ENCOUNTER → 2020-08-28 | Outpatient (CLI) | payer BC ==
--- NOTE | 2020-08-28 10:26 | XR ---
EXAMINATION TYPE: XR chest 2V DATE OF EXAM: 08/28/2020 COMPARISON: 04/02/2020 TECHNIQUE: PA and lateral views submitted. HISTORY: Chest pain FINDINGS: The lungs are clear and there is no pneumothorax, pleural effusion, or focal pneumonia. Heart is en larged. No overt failure. Hypertrophic and degenerative change of the spine. IMPRESSION: 1. Cardiomegaly.
== END | disposition home or self-care (01) ==
LOC: RADXRMAIN 08:15
PROVIDERS: ATTEND Internal Medicine Hematology & Oncology
DX: I51.7 Cardiomegaly (principal); C92.10 Chronic myeloid leukemia, BCR/ABL-positive, not having achieved remission
CPT/HCPCS: 71046

== ENCOUNTER → 2023-04-04 | Outpatient (CLI) | payer OTHER ==
--- NOTE | 2023-04-04 15:58 | NM ---
Nuclear medicine hepatobiliary scan. HISTORY: Pain. DOSAGE: The patient received 8 0z Ensure plus and 4.1 mCi of Technetium 99m Choletec. FINDINGS: There is normal hepatic extraction. Reduced uptake involving the left lobe liver. The gall bladder is seen by 10 minutes. There is biliary to bowel clearance by 20 minutes. Ejection fraction is 81%. IMPRESSION: 1. Normal hepatobiliary exam 2. There is a photopenic defect involving the left lobe liver which most likely is artifactual but co uld be confirmed with ultrasound.
== END | disposition home or self-care (01) ==
LOC: RADNMMAIN 12:52
PROVIDERS: ATTEND Family Medicine
DX: R10.84 Generalized abdominal pain (principal)
CPT/HCPCS: 78226; A9537

== ENCOUNTER → 2023-04-13 | Outpatient (CLI) | payer OTHER ==
[2023-04-13 16:33] LABS: African American GFR (CKD) 83 (>60 ml/min/1.73 sqM); Blood Urea Nitrogen 17 mg/dL (9-20); Non-African American GFR(CKD) 71 (>60 ml/min/1.73 sqM)
--- NOTE | 2023-04-14 09:25 | CT ---
EXAMINATION TYPE: CT abdomen pelvis w con DATE OF EXAM: 04/13/2023 COMPARISON: HISTORY: Chronic myeloid leukemia CT DLP: 1555.0 mGycm Automated exposure control for dose reduction was used. CONTRAST: CT scan of the abdomen pelvis is performed with IV Contrast, patient injected with 100ml mL of Isovue 300. FINDINGS- LUNG BASES- No significant abnormality is appreciated. Coronary artery calcification noted. LIVER/GB- No gross abnormality is appreciated. PANCREAS- No gross abnormality is seen. SPLEEN- measures 13.5 cm and mildly enlarged. Multiple accessory spleen. ADRENALS- No gross abnormality is seen. KIDNEYS/BLADDER- no hydronephrosis nephrolithiasis or renal mass. BOWEL- nonspecific LYMPH NODES- No greater than 1cm abdominal or pelvic lymph nodes are appreciated. OSSEOUS STRUCTURES- severe multilevel degenerative disc disease with retrolisthesis C3 relative to C 3 and anterolisthesis of C4 relative to C5. Multilevel facet. OTHER- aorta of normal caliber with mild atherosclerotic changes. Normal variant anatomy of the marlene ac axis with the splenic and hepatic arteries having separate origins off the aorta. IMPRESSION- 1. No evidence to suggest pathologic adenopathy or mass. 2. The spleen measures 13.5 cm and is mildly enlarged. 3. Coronary artery dense calcification.
== END | disposition home or self-care (01) ==
LOC: RADCTMAIN 15:42
PROVIDERS: ATTEND Internal Medicine
DX: C92.10 Chronic myeloid leukemia, BCR/ABL-positive, not having achieved remission (principal); I25.10 Atherosclerotic heart disease of native coronary artery without angina pectoris; I25.2 Old myocardial infarction; R16.1 Splenomegaly, not elsewhere classified; R79.89 Other specified abnormal findings of blood chemistry
CPT/HCPCS: 82565; 84520; 74177; 36415; Q9967

== ENCOUNTER → 2023-04-21 | Day surgery (SDC) | payer OTHER ==
[2023-04-19 14:24] VITALS: BMI 32.5
[~2023-04-21] MED LIST changes: +LACTATED RINGERS 1,000 ML IV ONE; +LACTATED RINGERS 1,000 ML IV SCH; +LIDOCAINE 1% (10MG/ML) FOR IV START INTRADERMA PRN; +PROPOFOL 10 MG/ML 20 ML VIAL IV ONE; -REGADENOSON 0.4 MG/5 ML SYRINGE IV ONE
[2023-04-21 09:53] VITALS: TEMP 98
--- NOTE | 2023-04-21 10:34 | P.GSHP ---
History of Present Illness H&P Date: 04/21/23 Chief Complaint: left lower quadrant pain, diarrhea this is a 57-year-old male said complaints of left lower quadrant pain and diarrhea. Patient presents today for colonoscopy. Past Medical History Past Medical History: Coronary Artery Disease (CAD), Cancer, Hyperlipidemia, Hypertension, Myocardial Infarction ([place]) Additional Past Medical History / Comment(s): LEUKEMIA Last Myocardial Infarction Date:: 2012 History of Any Multi-Drug Resistant Organisms: None Reported Past Surgical History: Appendectomy, Heart Catheterization, Heart Catheterization With Stent, Orthopedic Surgery Additional Past Surgical History / Comment(s): shoulder rotator left, RT CTR Past Anesthesia/Blood Transfusion Reactions: No Reported Reaction Date of Last Stent Placement:: 2019 Smoking Status: Former smoker - Past Family History Mother Family Medical History: No Reported History Brother(s) Family Medical History: Hypertension Medications and Allergies Home Medications Medication Instructions Recorded Confirmed Type Metoprolol Tartrate [Lopressor] 25 mg PO BID #60 tab 03/05/14 04/19/23 Rx Atorvastatin [Lipitor] 80 mg PO HS 10/27/15 04/19/23 History buPROPion HCL [Wellbutrin XL] 300 mg PO DAILY 10/27/15 04/19/23 History Enalapril Maleate [Vasotec] 20 mg PO BID 05/06/16 04/19/23 History Gabapentin [Neurontin] 600 mg PO TID 09/05/19 04/19/23 History Aspirin 81 mg PO DAILY chew 05/03/20 04/19/23 Rx Nilotinib HCl [Tasigna] 4 tab PO DAILY 04/19/23 04/19/23 History Allergies Allergy/AdvReac Type Severity Reaction Status Date / Time No Known Allergies Allergy Verified 05/01/20 19:25 Surgical - Exam Vital Signs Temp Pulse Resp BP Pulse Ox 98 F 78 18 119/65 99 04/21/23 09:51 04/21/23 09:51 04/21/23 09:51 04/21/23 09:51 04/21/23 09:51 - General well developed, well nourished, no distress - Eyes PERRL - ENT normal pinna - Neck no masses - Respiratory normal expansion - Cardiovascular Rhythm: regular - Abdomen Abdomen: soft, non tender Assessment and Plan Assessment: left lower quadrant pain, diarrhea. We will perform colonoscopy
--- NOTE | 2023-04-21 10:49 | P.OP ---
Date of Procedure: 04/21/23 Preoperative Diagnosis: diarrhea Left lower quadrant pain Postoperative Diagnosis: normal colonoscopy Procedure(s) Performed: colonoscopy Anesthesia: MAC Surgeon: Sha Pham Pathology: none sent Condition: stable Disposition: PACU Description of Procedure: PROCEDURE: The patient was placed on the endoscopy table in the lateral position. Digital rectal examination was performed which revealed no abnormalities. The prostate was symmetrical without nodules. Flexible colonoscope was then placed in the patient's anus and passed throughout the entire colon. The ileocecal valve was visualized. The cecum, ascending, transverse, descending and sigmoid colon were normal. The rectum was normal as well. There were no masses, polyps or diverticula noted in the entire colon. SUMMARY OF FINDINGS: Normal colonoscopy.
[2023-04-21 11:08] VITALS: BP 115/72; PULSE 50; RESP 17
== END ==
LOC: ORWHC2ENDO 08:19
PROVIDERS: ATTEND Surgery
DX: R19.7 Diarrhea, unspecified (principal); R10.32 Left lower quadrant pain; I25.10 Atherosclerotic heart disease of native coronary artery without angina pectoris; E78.5 Hyperlipidemia, unspecified; I10 Essential (primary) hypertension; I25.2 Old myocardial infarction; Z90.89 Acquired absence of other organs; Z87.891 Personal history of nicotine dependence; Z95.5 Presence of coronary angioplasty implant and graft; Z98.890 Other specified postprocedural states; Z79.82 Long term (current) use of aspirin; Z82.49 Family history of ischemic heart disease and other diseases of the circulatory system; Z79.899 Other long term (current) drug therapy
CPT/HCPCS: 45378; J2704

== ENCOUNTER → 2023-05-09 | Outpatient (CLI) | payer OTHER ==
--- NOTE | 2023-05-09 14:04 | MR ---
EXAMINATION TYPE: MR cervical spine wo con DATE OF EXAM: 05/09/2023 INDICATION: Patient age: Male; 57 years old; Reason for study: M48.02 cervical stenosis; PHH. Neck pain into left arm and fingers COMPARISON: Radiograph 04/27/2023 TECHNIQUE: Multi planar, multi sequence imaging was performed utilizing: T1-weighted, T2-weighted, an d turbo inversion recovery imaging of the cervical spine. IV Contrast: None FINDINGS: Alignment: The cervical vertebral bodies have preserved heights. Alignment is within normal limits gi whit patient positioning. Bones: Scattered Modic endplate changes with osteophytes and disc space narrowing. Some reactive bony edema scattered throughout adjoining endplates most pronounced at C5-C6 adjoining endplates. No susp icious bony edema identified. Multilevel degenerative disc disease is noted and most pronounced at th e C4-C5 C5-C6 vertebral levels. Cord: The spinal cord is unremarkable with regards to their signal intensity and morphology. Discs: Intervertebral disc signal is maintained. C2-C3: No significant disc pathology. The spinal canal is patent. No neural foraminal stenosis. C3-C4: No significant disc pathology. The spinal canal is patent. Bilateral facet and uncovertebral joint arthropathy are present with mild bilateral neural foraminal stenosis. C4-C5: A disc osteophyte complex is present with moderate spinal canal stenosis. Bilateral facet and uncovertebral joint arthropathy are present with moderate bilateral neural foraminal stenosis. C5-C6: No significant disc pathology. The spinal canal is patent. Bilateral facet and uncovertebral joint arthropathy are present with moderate bilateral neural foraminal stenosis. C6-C7: A disc osteophyte complex is present with mild spinal canal stenosis. Bilateral facet and unc overtebral joint arthropathy are present with moderate left and mild right neural foraminal stenosis. C7-T1: No significant disc pathology. The spinal canal is patent. No neural foraminal stenosis. T1-T2 disc bulge with at least mild spinal canal stenosis. Other: None. IMPRESSION: 1. No evidence for disc herniation or significant spinal canal stenosis. 2. Multilevel disc degeneration with associated osteoarthritic changes worse at C4-C5 and C5-C6 with moderate spinal canal stenosis and moderate neural foraminal stenosis bilaterally. Additional moderat e left neural foraminal stenosis at C6-C7.
== END | disposition home or self-care (01) ==
LOC: RADMRIMAIN 12:48
PROVIDERS: ATTEND Orthopaedic Surgery
DX: M50.121 Cervical disc disorder at C4-C5 level with radiculopathy (principal); M48.02 Spinal stenosis, cervical region; M47.22 Other spondylosis with radiculopathy, cervical region
CPT/HCPCS: 72141

== ENCOUNTER → 2023-07-07 | Outpatient (CLI) | payer OTHER ==
[2023-07-07 16:07] VITALS: BP 143/77; PULSE 56; RESP 16
--- NOTE | 2023-07-07 16:07 | P.PAINPG ---
PQRS Measure Charge Sheet Comment: HISTORY OF PRESENT ILLNESS: 57 yr old male as a referral from Dr Richardson presents today w severe and chronic neck pain x 1 yr secondary to DDD, spondylosis and facet arthropathy without myelopathy for evaluation. Pt states pain level is provoked at 5 /10 in intensity, constant, localized in the mid to lower cervical spine, sharp in character w shooting pain towards the BUEs. Pain is provoked by lifting. Pain is alleviated by medications (Neurontin, Tramadol, Advil, Ibu), topical CBD oil, PT x 4 wks in May 2023, repositioning and rest. Oswestry axial pain score at 24. PMH: OA, CAD, Leukemia, Hyperlipidemia, HTN, [place] (2012) PSH: Appendectomy, Heart Catheterization (2012) w Stent, L RCT Surgery SH: Former tobacco user, No ETOH abuse, No illicit drug use FH: Mo- No Reported History All: See list Meds: See list REVIEW OF ORGAN SYSTEMS: CONSTITUTIONAL: No fevers or chills. No recent weight loss. NEUROLOGICAL: + numbness and tingling along the distal extremities. No seizure disorders or headaches. MUSCULOSKELETAL: + pain PSYCHIATRIC: Denies current depression or suicidal thoughts. Physical Examinations : Constitutional : Cooperative , not in acute distress . Neurologic : Cranial nerve II to XII intact. No focal neurological deficits. Psychiatric : alert & oriented x 3. Matching mood & appropriate affect. Judgment & insight intact. Musculoskeletal : Cervical Spine Motor strength in the deltoid and biceps: Normal right side. Normal Left side Motor strength biceps and the wrist extensors: Normal right side . Normal left side Motor strength in the triceps muscle: Normal right side. Normal left side Deep tendon reflexes: Normal at the biceps. Normal at Brachioradialis. Normal at triceps Vertebral body tenderness to deep palpation over C6 Cervical facet loading test: positive bilaterally Spurling test: positive bilaterally over C6-C7 Neck distraction test: positive bilaterally Ad sign: positive bilaterally Lumbar spine Motor strength lower extremities ,thigh and legs 5/5 Right side , 5/5 Left side Deep tendon reflexes : Normal Knee Jerk. Normal Ankle Jerk Vertebral body tenderness over Beard Test positive Lumbar facet Loading Test: positive Right / positive Left Range of motion of the lumbar spine Flexion 30 degrees, extension 10 degrees Straight Leg Raise test: Left/ Right positive at degree Pete test: positive right / positive left. Severe tenderness over the Sacroiliac joint on the Right / Left sides Gaenslen test: positive bilaterally Seated flexion test: positive bilaterally. Sacral spine : Severe tenderness over the Sacroiliac joint: right side / left side Range of motion: Flexion of the lumbar spine <60 degrees Range of motion: Extension of the lumbar spine <20 degrees Gaenslen's Test positive Sid's Test positive Pete test: positive right side / left side Thigh Thrust Test Sacral Thrust Test Imaging: MRI noncontrast of the cervical spine from 05/09/23 reviewed Assessment/ Plan : Cervical DDD Recommendation of SAM C6- C7 #1. May need a series of injections for optimal pain relief. Risks, benefits of procedure discussed and patient verbalized understanding. Admits to aspirin or anti- coagulant use or medical history of diabetes. Protocol for discontinuation/ continuation of medications edgardo procedure discussed. Minimal anesthesia provided, if clinically indicated, consisting of Versed and Fentanyl. All questions answered. I have spent greater than 30 minutes on patient care today. Dr Leavitt was available by phone for the evaluation of this patient. The time was used to review the medical records including relevant urine studies and Prescription history (MAPs), review of the available imaging, evaluation and examination of the patient, coordination of care with the medical staff and if applicable referring physicians, as well as creation of the medical record PQRS Narrative: Smoking Status Former smoker Home Medications: Ambulatory Orders Metoprolol Tartrate [Lopressor] 25 mg PO BID #60 tab 03/05/14 Atorvastatin [Lipitor] 80 mg PO HS 10/27/15 buPROPion HCL [Wellbutrin XL] 300 mg PO DAILY 10/27/15 Enalapril Maleate [Vasotec] 20 mg PO BID 05/06/16 Gabapentin [Neurontin] 600 mg PO TID 09/05/19 Aspirin 81 mg PO DAILY chew 05/03/20 Nilotinib HCl [Tasigna] 4 tab PO DAILY 04/19/23 Controlled Substance Measures - Controlled Substance Measures Is patient prescribed a controlled substance at discharge?: No
== END ==
LOC: PNWHC3 12:24
PROVIDERS: ATTEND Specialist
DX: M50.123 Cervical disc disorder at C6-C7 level with radiculopathy (principal); M19.90 Unspecified osteoarthritis, unspecified site; I25.10 Atherosclerotic heart disease of native coronary artery without angina pectoris; E78.5 Hyperlipidemia, unspecified; I10 Essential (primary) hypertension; I25.2 Old myocardial infarction; Z79.82 Long term (current) use of aspirin; Z87.891 Personal history of nicotine dependence; Z79.899 Other long term (current) drug therapy
CPT/HCPCS: 99211

== ENCOUNTER → 2023-08-05 | Outpatient (CLI) | payer OTHER ==
--- NOTE | 2023-08-05 14:06 | US ---
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 TECHNIQUE: FINDINGS: The left axilla appears red, edematous, and is painful to the touch. Hypoechoic area noted measuring 2.4 x 1.4 x 2.7 cm; an additional area that appears complex is noted more superficially me asuring 1.2 x 2.2 x 1.6 cm IMPRESSION: 1. Complex subcutaneous collection noted which likely reflect a small abscess which is smaller in siz christiana on prior examination. Also within the deeper tissues there is a more circumscribed hypoechoic a isauro noted which could reflect an enlarged lymph node possibly reactive in nature. Additional infected collection is difficult to exclude.
== END | disposition home or self-care (01) ==
LOC: RADUSWWP 12:59
PROVIDERS: ATTEND Internal Medicine
DX: C92.10 Chronic myeloid leukemia, BCR/ABL-positive, not having achieved remission (principal); R59.0 Localized enlarged lymph nodes

== ENCOUNTER → 2023-08-23 | Outpatient (CLI) | payer OTHER | END | disposition home or self-care (01) | LOC: LABPAT 08:48 | PROVIDERS: ATTEND Orthopaedic Surgery | DX: Z01.812 Encounter for preprocedural laboratory examination (principal); Z22.322 Carrier or suspected carrier of Methicillin resistant Staphylococcus aureus; M47.22 Other spondylosis with radiculopathy, cervical region; M48.02 Spinal stenosis, cervical region | CPT/HCPCS: 86850; 86900; 86901; 87070 ==

== ENCOUNTER → 2023-08-26 | Outpatient (CLI) | payer OTHER ==
[2023-08-26 09:09] LABS: HCT 43.2 % (39.0-53.0); HGB 14.2 gm/dL (13.0-17.5); MCH 30.4 pg (25.0-35.0); MCHC 32.9 g/dL (31.0-37.0); MCV 92.5 fL (80.0-100.0); Mean Platelet Volume 9.8; Platelet Count 127 k/uL (150-450); RBC 4.67 m/uL (4.30-5.90); RDW 14.4 % (11.5-15.5); WBC 5.2 k/uL (3.8-10.6)
[2023-08-26 09:14] LABS: Partial Thromboplastin Time 22.1 sec (22.0-30.0); Prothrombin Time 10.8 sec (10.0-12.5)
[2023-08-26 09:16] LABS: ALT 34 U/L (4-49); AST 37 U/L (17-59); African American GFR (CKD) >90 (>60 ml/min/1.73 sqM); Albumin 4.3 g/dL (3.5-5.0); Albumin/Globulin Ratio 1.7; Alkaline Phosphatase 86 U/L (38-126); Anion Gap 9 mmol/L; Blood Urea Nitrogen 15 mg/dL (9-20); Calcium 8.9 mg/dL (8.4-10.2); Carbon Dioxide 27 mmol/L (22-30); Chloride 106 mmol/L (98-107); Globulin 2.6 g/dL; Glucose 105 mg/dL (74-99); Non-African American GFR(CKD) 82 (>60 ml/min/1.73 sqM); Potassium 4.5 mmol/L (3.5-5.1); Sodium 142 mmol/L (137-145); Total Bilirubin 0.5 mg/dL (0.2-1.3); Total Protein 6.9 g/dL (6.3-8.2)
== END | disposition home or self-care (01) ==
LOC: LABWHC1 08:33
PROVIDERS: ATTEND Orthopaedic Surgery
DX: M47.22 Other spondylosis with radiculopathy, cervical region (principal); M48.02 Spinal stenosis, cervical region
CPT/HCPCS: 36415; 80053; 82306; 85027; 85610; 85730

== ENCOUNTER 2023-08-30 05:46 | Observation (INO) | payer OTHER ==
[~2023-08-30 05:46] MED LIST changes: +ACETAMINOPHEN TAB 500 MG TAB PO PRN; +GABAPENTIN 300 MG CAP PO PRN; -LACTATED RINGERS 1,000 ML IV ONE; -LACTATED RINGERS 1,000 ML IV SCH; -LIDOCAINE 1% (10MG/ML) FOR IV START INTRADERMA PRN; +ONDANSETRON 4 MG/2 ML VIAL IVP PRN; -PROPOFOL 10 MG/ML 20 ML VIAL IV ONE; +TRANEXAMIC 1,000 MG/100ML-NACL 1,000 MG in SALINE 1 100ML.BAG IVPB PRN
[2023-08-30] MEDS ORDERED: DEXAMETHASONE SOD PHOSPHATE 4 MG/ML 1 ML VIAL IV ONE (05:53)
[2023-08-30] MEDS ORDERED: LIDOCAINE 1% (10MG/ML) FOR IV START INTRADERMA PRN (05:53)
--- NOTE | 2023-08-30 06:13 | P.HPOR ---
History of Present Illness H&P Date: 08/24/23 .D:Date: 08/24/23 : 02:50pm .T:Title: [facility] Date of :[birth year] R14 Allergies: Age: 57 year Height: 5'9" Weight: 240 lbs BP:124/74 BMI: 35.44 kg/m2 Occupation: Unemployed VAS: 7 CHIEF COMPLAINT: Re-check on neck pain DOI: Chronic DOS: n/a Duration of current treatment regiment:n/a HISTORY: Xrays No new xrays taken in office Trauma or injury No Work-Related No Pain description Dull, aching, throbbing. Location posterior Patient notes that their pain radiates to left upper extremity Activity Modification No Hand Dominance left TREATMENTS COMPLETED: 6 weeks of PT completed? Month and Year of last PT date? Yes, 12 session without relief, exacerbated symptoms. Physician directed home exercise completed? Yes, without relief Medications Yes List: Motrin, Flexeril, Gabapentin, Aspirin Alternative interventions Chiropractic: No Massage therapy: No R.I.C.E: yes Brace: No Injections No RFA: No SUBJECTIVE: Pt returns today for recheck and pre op visit for his cervical spine. He states continued pain in his neck and arms that is unrelenting and has not abated with conservative measures. He continues to have paresthesias into the b/l UE and weakness in the RUE. He states no bowel or bladder issues. No perineal numbness/tingling at this time. He states he understands the risks and benefits of surgery as we have discussed and he has read in the risk review and he is ready for surgical intervention. HISTORY: Mr. Castellano returns to the office today for a re-check on his cervical pain. Since last visit patient states his pain has increased. The patient reports experiencing a continued dull, ache-like pain throughout the neck that radiates into the left shoulder and lateral aspect of the left upper extremity. The patient states his left arm pain is associated with numbness and tingling. The patient reports experiencing decreased hand dexterity on the left. The patient states his symptoms worsen after prolonged use of the left arm, any overhead activity, or with certain movements of the neck. The patient reports experiencing severe sleep disturbances related to his ongoing pain and associated symptoms. The patient has trialed conservative treatment in the form of physical therapy, physician directed at home exercises, at home heat/ice therapies, activity modification, and medication management, all with no relief. The patient states that physical therapy exacerbated his symptoms. The patient is currently taking Flexeril, Motrin, Gabapentin, and Aspirin for his pain and symptoms. Otherwise patient denies f/c/n/v/cp and ambulates independently today. Mr. Castellano returns to the office on 06/13/23 for a re-check on his neck pain. The patient reports experiencing a continued dull, ache-like pain throughout the neck that radiates down into the lateral aspect of the left upper extremity. The patient states his left arm pain is associated with numbness and tingling, which has mildly worsened since he was last evaluated in office on 05/20/2023. The patient reports experiencing decreased hand dexterity on the left. The patient states his symptoms worsen after prolonged use of the left arm, any overhead activity, or with certain movements of the neck. The patient reports experiencing moderate to severe sleep disturbances related to his ongoing pain and associated symptoms. The patient has trialed conservative treatment in the form of physical therapy, physician directed at home exercises, at home heat/ice therapies, activity modification, and medication management, all with no relief. The patient states that he felt physical therapy exacerbated his symptoms. The patient is currently taking Motrin with very minimal relief of his symptoms. The patient also takes Aspirin 81 mg daily. Otherwise patient denies f/c/n/v/cp and ambulates independently today Mr. Castellano returns to the office on 05/20/2023 for a recheck of his cervical pain and to review his recent MRI results. Since the last office visit, patient r eports no changes in his symptoms. Patient continues to report a constant, dull, aching, and throbbing cervical pain that radiates to the left lateral region and into the left upper extremity, associated with numbness and tingling through the C5-C6 distribution. Patient notes numbness and decreased left hand dexterity with overhead activities. He states he has had a new onset of cervical pain radi ating into the top of the right shoulder. Patient has completed PT with no relief and exacerbation of his symptoms. Patient is currently taking Gabapentin and Motrin. From the last office visit, patient did trial the MDP with no relief of his symptoms. MRI of the Cervical spine results have been reviewed and discussed. Patient is very emotional at this time. He declines PM&R at this time. Otherwise patient denies f/c/n/v/cp and ambulates independently. Mr. Castellano was last seen on 04/27/23 regarding an evaluation of his cervical pain. Patient reports a constant, dull, aching, and throbbing cervical pain that has persisted over the past 2-3 years. Patient reports that it does radiates to the left lateral region and into the left upper extremity, associated with numbness and tingling through the C5-C6 distribution. Patient does report increase in headaches and that his head feels heavy by the end of the day. Mr. Castellano states his symptoms are exacerbated with any overhead activity and frequent range of motion of the cervical spine. Patient has trialed he therapy. He denies trialing any other modalities at this time. for his symptoms, patient has been taking gabapentin and utilizing CBD. Patient does have a history of leukemia and has been on chemotherapy since 2018. He did restart chemo again as of December 2022. Otherwise patient denies f/c/n/v/cp and ambulates independently. The patients' past social, medical, family, surgical history, as well as review of systems, have been reviewed. Please refer to the Neurosurgery History and Physical form that has been scanned in to our electronic medical record system. 14 points review of systems completed and as stated in HPI, all other systems reviewed are negative. Social History: Reviewed, see appropriate section of the chart for details. P3 Family History: Reviewed, see appropriate section of the chart for details. P2 Past Medical History: Reviewed, see appropriate section of the chart for details. A4Brpoqcl Medications: Rx: BUPROPION HCL ER (XL) 300MG ORAL Tablet ER 24HR, Ref: 0 Rx: metoprolol tartrate Ref: 0 Rx: atorvastatin 40 mg tablet Ref: 0 Rx: enalapril maleate Ref: 0 Rx: Tasigna Ref: 0 Rx: aspirin 81 mg chewable tablet Ref: 0 Rx: cyclobenzaprine 5 mg tablet Ref: 0 PHYSICAL EXAMINATION: General: Awake, alert, appropriate for age, in no acute distress. HEENT: No unusual neck masses around region of lateral neck triangle, thyroid, supraclavicular groove Heart: Regular rate and rhythm, normal S1, S2 and no murmur/gallop. Lungs: Clear to auscultation bilaterally with no use of accessory muscles. Extremities: Skin warm and dry without acute lesions, coloration, temperature, skin intact, no tenderness or erythema Integument: Hairy patches: ABSENT Dorsal skin dimples: ABSENT Cafe au lait spots: ABSENT Surgical incisions: n/a Palpation: Please see Pain drawing on Intake sheet for further detail. Midline spinal tenderness: YES E6 Cervical Tenderness: YES E6 Paralumbar tenderness: No E6 Parathoracic tenderness: No E6 Buttocks tenderness: No E6 Sacroilliac Tenderness: No POSTURAL and MUSCULO-SKELETAL EVALUATION: Coronal Balance: NEUTRAL Recumbent testing: Patient is able to lay flat on back Sagittal Balance: NEUTRAL Shoulder Profile: LEVEL Pelvic Girdle: LEVEL Neck ROM: RESTRICTED Lumbar ROM: UNRESTRICTED Shoulder ROM: Symmetrical Hip ROM: Symmetrical Knee ROM: Symmetrical Hands: Normal appearance, symmetrical Feet: Normal appearance, Symmetrical VASCULAR STATUS : LEFT RIGHT Wrist Pulses INTACT INTACT Pedal Pulses (Dors. pedis & post.tibialis) INTACT INTACT Color NORMAL NORMAL Edema Absent Absent NEUROLOGIC EXAMINATION: Mental Status:Awake and alert, fully oriented, with normal attention, concentration and memory, and fluent, appropriate speech. Cranial Nerves: I: Olfactory not tested. II: Visual acuity normal, no visual field deficit noted with confrontation. III,IV: Normal pupillary reflexes & intact extraocular movements without nystagmus. V,: Intact symmetrical facial sensation. VII: Intact symmetrical facial motor movement VIII: Hearing intact. IX,X: Intact gag, swallow, & normal voice. XI: Sternocleidomastoid, trapezius function intact. XII: Tongue midline with normal movements. L'hermitte's Sign: Negative / absent Spurling'Sign: Absent bilaterally. Cubital percussion test: Absent bilaterally. Martini-Tinel sign - Carpal region: Absent bilaterally. Straight Leg Raising: Absent bilaterally. Crossed straight leg raise: negative O8 MOTOR EXAM (0-5/5, N/T Muscle appearance: Symmetrical, without signs of atrophy or dystrophy UPPER EXTREMITY RIGHT LEFT Shoulder Abduction 4+/5 4/5 Biceps 4+/5 4/5 Triceps 4+/5 4/5 Wrist Extension 4+/5 4/5 Hand Intrnsics 4+/5 4/5 Funeral Home Attendant 4+/5 4/5 Hand and finger dexterity intact bilaterally?yes Disdiadochokinesis examination negative bilaterally? yes LOWER EXTREMITY RIGHT LEFT Hip Flexion 5/5 5/5 Knee Extension 5/5 5/5 Knee Flexion 5/5 5/5 Dorsiflexion 5/5 5/5 Plantarflexion 5/5 5/5 EHL 5/5 5/5 FHL 5/5 5/5 Toe heel walk / heel-toe walk intact while maintaining satisfactory balance?yes Squatting/straightening w/o assistance to a min of 60 degree knee flexion? yes Single leg stance:intact Trendelenburg sign negative bilaterally REFLEXES(0-4/2, NT)Upper Extrem ityLower Extremity Right 1 2 Left 3 2 Pathological Reflexes RIGHT LEFT Martini's PRESENT PRESENT Clonus Absent Absent Babinski Absent Absent Sensory system (0-4, N/T) Test type RU CHERYLE RL LL Joint-Position 2 2 2 2 Vibration 2 2 2 2 Pain & LT sense 2 2 2 2 Dermatomal Deficit: None C5-C6 None None Gait and Functional Evaluation: Ambulatory aids: Independent Romberg's test:Intact bilaterally Steady Gait RADIOGRAPHIC STUDIES: [facility]05[facility]09[facility]23 of CervicalSpine: IMPRESSION: 1. No evidence for disc herniation or significant spinal canal stenosis. 2. Multilevel disc degeneration with associated osteoarthritic changes worse at C4-C5 and C5-C6 with moderate spinal canal stenosis and moderate neural foraminal stenosis bilaterally. Additional moderate left neural foraminal stenosis at C6-C7. XRay Cervical multiview (Lateral, Flexion, Extension, AP, Oblique) 6 views taken at [facility] on 04/27/23: Multilevel spondylitic and degenerative changes with straightening of the normal lordosis. Diminished disc height present C4C7. bilateral foraminal stenosis at C4-C5, C5-C6. Vertebral body heights are preserved. Anterior osteophytes present due to opposing endplate osteophytosis C4-C5, C5-C6, C6-C7. No acute osseous abnormalities. IMPRESSION: It was my pleasure to have seen and examined Delon. I reviewed the patient's clinical syndrome, physical findings, and imaging studies during the appointment today. It is my impression that the patient has a diagnosis of. 1. C4-6 spondylosis and stenosis 2.Upper extremity radiculopathy 3. Upper extremity weakness I outlined the natural course history without intervention and various interventional options. PLAN: Based on my findings I suggest the following course of action: - I sent a prescription for Toradol 10mg to patient's pharmacy today -Advised patient to continue with supplements, health maintenance, and home exercise programs. Patient expressed understanding and will continue with these modalities. - I discussed treatment options with the patient, including operative and non- operative options, and they have elected to proceed with the following surgical procedure: cervical C4-6 ACDF The indications, risks, benefits, and alternatives to surgery were discussed with the patient at length. Specifically (but not limited to) the risks of infection, stiffness, recurrence of symptoms, need for revision surgery, local numbness, neurovascular injury, and blood clots were discussed. The patient's questions were answered. The decision to proceed was made. Consent will be obtained for the procedure. -Ambulate daily -Take medications as directed -Ice and rest for pain and swelling control. Spine Surgery Risk Review Mr. Castellano is presenting for evaluation of cervical pain. It was my pleasure to have seen and examined Mr. Castellano. In our visit today we have had a chance to go over subjective complaints, physical examination findings and treatments including the natural course history without intervention and various interventional options. The patients imaging demonstrates: MRI scancompleted at [facility] from05/09/23 of CervicalSpine: IMPRESSION: 1. No evidence for disc herniation or significant spinal canal stenosis. 2. Multilevel disc degeneration with associated osteoarthritic changes worse at C4-C5 and C5-C6 with moderate spinal canal stenosis and moderate neural foraminal stenosis bilaterally. Additional moderate left neural foraminal stenosis at C6-C7. XRay Cervical multiview (Lateral, Flexion, Extension, AP, Oblique) 6 views taken at [facility] on 04/27/23: Multilevel spondylitic and degenerative changes with straightening of the normal lordosis. Diminished disc height present C4C7. bilateral foraminal stenosis at C4-C5, C5-C6. Vertebral body heights are preserved. Anterior osteophytes present due to opposing endplate osteophytosis C4-C5, C5-C6, C6-C7. No acute osseous abnormalities. On physical exam, Mr. Castellano demonstrates: Since last visit patient states his pain has increased. The patient reports experiencing a continued dull, ache-like pain throughout the neck that radiates into the left shoulder and lateral aspect of the left upper extremity. The patient states his left arm pain is associated with numbness and tingling. The patient reports experiencing decreased hand dexterity on the left. The patient states his symptoms worsen after prolonged use of the left arm, any overhead activity, or with certain movements of the neck. The patient reports experiencing severe sleep disturbances related to his ongoing pain and associated symptoms. The patient has trialed conservative treatment in the form of physical therapy, physician directed at home exercises, at home heat/ice therapies, activity modification, and medication management, all with no relief. The patient states that physical therapy exacerbated his symptoms. I have explained to the patient that as their condition progresses it will cause further neurological deficits and eventual paralysis. Based on the patients imaging, physical exam, and the rapid progression and disabling nature of their symptoms, at this time I recommend surgery in the form of a: cervical C4-6 ACDF. I discussed the risk and benefits of this procedure at length with Mr. Castellano. The patient agreed to considered pursuing the procedure abovementioned. Prior to surgery, she should follow up with her PCP (Cardio, ID, IM etc) for clearance. Questions were invited and answered, and the patient wishes to proceed as outlined below. Currently, I am recommendin. cervical C4-6 ACDF 2.Follow up with PCP for surgical clearance 3.Review of surgical risks and benefits as well as an educational packet on the proposed surgical procedure. Risks: All surgical procedures come with inherent risks, including those related to positioning, anesthesia, intraoperative findings, and postoperative complications. It is important to understand that surgery does not come with any guarantee of a successful outcome as complications and adverse events are always possible. The patient was given a handout in office today discussing the surgical procedure and risks associated with the intervention, both of which were discussed with the patient. These risks include but are not limited to the following: * Experiencing same, different or even worse symptoms in back, neck, arms, or legs compared to before surgery. Requiring further surgery or other forms of treatment presently or at some time in the future at same or other levels of the intended spine surgery. On an extreme but fortunately relatively rare basis severe complication such as blindness, stroke, heart attack, temporary and/or permanent nerve injury, paralysis, coma, or may occur, sometimes without known explanation. Surgical complications may include but are not limited to risk of infection, fluid accumulation in the surgical dissection site, including a seroma or hematoma, that requires additional surgery, wound drainage, bleeding, new numbness or weakness, vision changes/loss, spinal fluid leakage, non-healing and/or infected incision, headaches, difficulty or inability to swallow, hoarseness, hemopneumothorax, pneumothorax, impotence, retrograde ejaculation, vaginal dryness; injury to nerves, spinal cord, blood vessels, lymphatics or other vital organs (i.e., bowel injury, injury to the great vessels); heterotopic bone formation; complications related to the hardware such as screws, rods, cages including misplaced hardware, device failure, instrumentation at the wrong spine level, hardware fracture/breakage, or hardware loosening; vertebral failure of the spinal column above or below the newly placed hardware; retained surgical instrumentations or devices and the need for further surgery. * Medical risks of the planned spine surgery include but are not limited to generalized Infections to the whole body or local areas outside of the surgical site (sepsis), heart attack, bleeding, anaphylaxis, meningitis, seizure, epilepsy, hearing loss, burn tam, laceration of the head or other areas of the body, bruising, hypersensitivity of the skin, bladder over distension; allergic reaction; shoulder injury related to positioning; fat, blood and air clots to other areas of the body like heart, lungs, brain; failure of internal organs such as lungs, kidneys, liver and excessive bleeding. If blood transfusions are necessary, note that transfusions may cause intolerance reactions such as anaphylaxis or other complex reactions. Despite best efforts, the results of spine surgery might not heal in terms of bone, soft tissues such as skin, fascia, ligaments, and joints. Additionally, in order to achieve best possible results, spine surgery may be carried out beyond the initially planned levels and involve decompression, fusion including insertion of hardware at levels other than the original intended area of surgical interest change some portions of the procedure in order to ensure the best possible outcomes. With spine surgery and spinal fusion, there are different off label uses of instrumentation (devices, implants and hardware) as well as biological substances (bone morphogenic proteins, demineralized bone matrix) as well as using extra bone from allograft sources (i.e. cadaver bone) or autograft (iliac crest bone, ribs, or the spine itself). The patient has been given information about these practices and their inherent risks and benefits. [facility] is an educational center that serves as a training facility for neurosurgical and orthopedic STATION INSPECTOR and Nursing students. Physician assistants are medically trained surgical providers who function in the outpatient, inpatient, and operating room setting under the direct supervision of the attending surgeon. [facility] has multiple operating rooms with single and overlapping rooms running daily. They currently function under the required guidelines as produced by the [facility] Finance Committee with regards to the overlapping rooms and will continue to comply with changes to this policy as they occur. The requirements include and are complied with as follows: (1) the critical portions of the overlapping rooms will not occur at the same time, (2) the attending physician will be physically present during the critical portions of the procedure and immediately available during the entire case, and (3) a back-up attending is designated should the primary attending not be immediately available. The patient has had a chance to review all the listed information, has been given print outs detailing this information, and has had all his/her questions answered to their satisfaction. It was my pleasure to have seen and examined Mr. Castellano. In our visit today we have had a chance to go over my understanding of our patient's current condition, the natural course history without intervention and various interventional options. Questions were invited and answered, and the patient wishes to proceed as outlined above. I have seen and examined the patient for 25 minutes and we have spent more than 50% of the time in repeat and detailed counseling about the patient's condition, its natural course history with out and as much as can be predicted with surgery and re-review of various surgical treatment options. In conclusion, Mr. Castellano and [his/her spouse/partner] requested we proceed with the above suggested surgery and are willing to accept risks and limitations of the suggested surgery as nature of the disease process and our best attempts at treatment for the condition. Thank you again for allowing us to be part of your patient's care. Please don't hesitate to contact me if you have any further questions. Follow- up: POST OP Patient Education: (Informational booklet, instructions, etc) given at today's appointment: Yes .ED:Patient Education: Y Medications Reviewed: YES In our visit today Mr. Castellano and I have had a chance to go over my understanding of the patient's current condition, the natural course history without intervention and various interventional options. Questions were invited and a nswered, and the patient wishes to proceed as outlined above. I will be sure to keep you updated afterMr. Gray returns here for further follow-up. Thank you again for your referral. Please do not hesitate to contact me if you have any further questions. Signed and authenticated by: Tanvir Juarez [facility] [address], [address] [place] [address] This message is confidential, intended only for the named recipient(s) and may contain information that is privileged or exempt from disclosure under applicable law. If you are not the intended recipient(s), you are notified that the dissemination, distribution or copying of this information is strictly prohibited. If you received this message in error, please notify the sender then delete this message. Patient verbalizes understanding of the information discussed. The above note was initiated by James Viramontes, physician recording preschool assistant teacher for Dr. Tanvir Ponce. This note has been reviewed by Dr. Ponce, who has made his personal changes and impressions for this document. CC: Thierry Richardson M.D. # SIGNED BY Tanvir Ponce ([facility])08/30/2023 06:12AM Past Medical History Past Medical History: Coronary Artery Disease (CAD), Cancer, Hyperlipidemia, Hypertension, Myocardial Infarction (ID) Additional Past Medical History / Comment(s): LEUKEMIA Last Myocardial Infarction Date:: 2012 History of Any Multi-Drug Resistant Organisms: None Reported Past Surgical History: Appendectomy, Heart Catheterization, Heart Catheterization With Stent, Orthopedic Surgery Additional Past Surgical History / Comment(s): shoulder rotator left, RT CTR Past Anesthesia/Blood Transfusion Reactions: No Reported Reaction Date of Last Stent Placement:: 2012 Smoking Status: Unknown if ever smoked Past Alcohol Use History: Rare - Past Family History Mother Family Medical History: No Reported History Brother(s) Family Medical History: Hypertension Medications and Allergies Home Medications Medication Instructions Recorded Confirmed Type Metoprolol Tartrate [Lopressor] 25 mg PO BID #60 tab 03/05/14 08/25/23 Rx Atorvastatin [Lipitor] 80 mg PO HS 10/27/15 08/25/23 History buPROPion HCL [Wellbutrin XL] 300 mg PO DAILY 10/27/15 08/25/23 History Enalapril Maleate [Vasotec] 20 mg PO BID 05/06/16 08/25/23 History Gabapentin [Neurontin] 800 mg PO TID 09/05/19 08/25/23 History Aspirin 81 mg PO DAILY chew 05/03/20 08/25/23 Rx Allergies Allergy/AdvReac Type Severity Reaction Status Date / Time No Known Allergies Allergy Verified 08/25/23 14:46 Physical Examination Osteopathic Statement: *. No significant issues noted on an osteopathic structural exam other than those noted in the History and Physical/Consult.
[2023-08-30] MEDS: LACTATED RINGERS 1,000 ML IV SCH (06:21)
[2023-08-30] MEDS ORDERED: SUCCINYLCHOLINE CHLORIDE 200 MG/10 ML VIAL IV ONE (07:28)
[2023-08-30] MEDS ORDERED: LIDOCAINE 1% INJ 10MG/ML (20 ML MDV) ONE (07:28)
[2023-08-30] MEDS ORDERED: MIDAZOLAM 2 MG/2 ML VIAL ONE (07:28)
[2023-08-30] MEDS ORDERED: fentaNYL (PF) 50 MCG/ML 2 ML AMP ONE (07:28)
[2023-08-30] MEDS ORDERED: TRANEXAMIC 1,000 MG/100ML-NACL PREMIX BAG ONE (07:28)
[2023-08-30] MEDS ORDERED: PROPOFOL 10 MG/ML 20 ML VIAL IV ONE (07:28)
[2023-08-30] MEDS ORDERED: GELATIN SPONGE,ABSORB (LARGE) 1 EACH SPONGE MISCELLANE ONE (08:23)
[2023-08-30] MEDS ORDERED: THROMBIN (BOVINE) 5,000 UNIT VIAL TOPICAL ONE (08:23)
--- NOTE | 2023-08-30 10:11 | P.OP ---
Date of Procedure: 08/30/23 Preoperative Diagnosis: 1. 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 UE RADICULOPATHY 3. UE WEAKNESS 4. NECK PAIN Postoperative Diagnosis: 1. 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 UE RADICULOPATHY 3. UE WEAKNESS 4. NECK PAIN Procedure(s) Performed: 1. C4-5, C5-6 ANTERIOR CERVICAL ARTHRODESIS (30245, 82898) 2. APPLICATION OF NON-INTEGRATED ANTERIOR PLATE (92401) 3. INSERTION OF BIOMECHANICAL DEVICE X2 CAGES (98163U5) USE OF IONM USE OF IO MICROSCOPE Implants: -GLOBUS HEDRON CAGE X2 -GLOBUS ANTERIOR CERVICAL PLATE -VENTRIS ALLOCELL Anesthesia: GETA Surgeon: Tanvir Ponce Pumpman #1: Shazia Myrick (Was present and assisted with all aspects of the case from positioning to closure. ) Estimated Blood Loss (ml): 25 IV fluids (ml): 1,200 Urine output (ml): 0 Pathology: none sent Condition: stable Disposition: PACU Indications for Procedure: Mr. Castellano is presenting for evaluation of cervical pain. It was my pleasure to have seen and examined Mr. Castellano. In our visit today we have had a chance to go over subjective complaints, physical examination findings and treatments including the natural course history without intervention and various interventional options. The patients imaging demonstrates: [facility] Cerv[facility]Spine: IMPRESSION: 1. No evidence for disc herniation or significant spinal canal stenosis. 2. Multilevel disc degeneration with associated osteoarthritic changes worse at C4-C5 and C5-C6 with moderate spinal canal stenosis and moderate neural foraminal stenosis bilaterally. Additional moderate left neural foraminal stenosis at C6-C7. XRay Cervical multiview (Lateral, Flexion, Extension, AP, Oblique) 6 views taken at [facility] on 04/27/23: Multilevel spondylitic and degenerative changes with straightening of the normal lordosis. Diminished disc height present C4C7. bilateral foraminal stenosis at C4-C5, C5-C6. Vertebral body heights are preserved. Anterior osteophytes present due to opposing endplate osteophytosis C4-C5, C5-C6, C6-C7. No acute osseous abnormalities. On physical exam, Mr. Castellano demonstrates: Since last visit patient states his pain has increased. The patient reports experiencing a continued dull, ache-like pain throughout the neck that radiates into the left shoulder and lateral aspect of the left upper extremity. The patient states his left arm pain is associated with numbness and tingling. The patient reports experiencing decreased hand dexterity on the left. The patient states his symptoms worsen after prolonged use of the left arm, any overhead activity, or with certain movements of the neck. The patient reports experiencing severe sleep disturbances related to his ongoing pain and associated symptoms. The patient has trialed conservative treatment in the form of physical therapy, physician directed at home exercises, at home heat/ice therapies, activity modification, and medication management, all with no relief. The patient states that physical therapy exacerbated his symptoms. I have explained to the patient that as their condition progresses it will cause further neurological deficits and eventual paralysis. Based on the patients imaging, physical exam, and the rapid progression and disabling nature of their symptoms, at this time I recommend surgery in the form of a: cervical C4-6 ACDF. I discussed the risk and benefits of this procedure at length with Mr. Castellano. The patient agreed to considered pursuing the procedure abovementioned. Prior to surgery, she should follow up with her PCP (Cardio, ID, IM etc) for clearance. Questions were invited and answered, and the patient wishes to proceed as outlined below. Currently, I am recommendin. cervical C4-6 ACDF Description of Procedure: C4-6 ACDF The patient was seen and examined in the preoperative area. All preoperative protocols were followed. Informed consent was obtained, risks and benefits of the procedure were discussed at length. Risks including bleeding infection damage to the surrounding tissue and risk of reoperation were discussed with the patient. Risk of anesthesia up to and including was discussed with the patient. These are outlined in the risk review. They were willing to accept these risks and all the risks of surgery. The patient was given a weight-based dose of antibiotics in the form of 2 g Ancef. The patient was seen and evaluated by the anesthesia team who deemed them fit for surgery. The site was marked, the patient was willing to proceed with the procedure. The patient was transferred to the operative suite by the Department of anesthesia. They were then drifted off to sleep by the department anesthesia and GETA was performed. The patient tolerated this well. Germain catheter was placed by nursing staff, a-traumatically. Once confirmation of lines and ventilation the patient was transferred to a Supine Laci table very carefully. All bony prominences including wrists, elbows, axilla, chest, hips, and thighs, and feet were padded very well. Special attention was paid to the genitalia, and these were padded accordingly. SCDs were placed on bilateral lower extremities and were connected. Arms were well padded and placed at their side thumbs up. Once in position, again we confirmed good ventilation capabilities and that lines were running appropriately. The patients Cervical spine was then exposed. 1010s were placed outlining the incision site. Standard alcohol was used to clean the incision site and allowed to dry. C-arm was used to bio-jerrica the patient and confirm level for incision which was marked with a skin marker. Operative briefing was performed with all teams and everyone in agreement to proceed. The patient was then prepped and draped in a normal marcial rile fashion. Timeout was then performed, and all parties agreed with the procedure to be performed. Transverse skin incision was then made on the right side of the patient's neck 3 cm and dissection taken down to the platysma which was split transversely. Sub platysma flap was made, and an interval identified between SCM and medial structures. Omohyoid was visualized and protected. Blunt dissection taken down to the anterior cervical fascia which was identified. Blunt probe was then placed and lateral image taken which confirmed levels for operation. These levels were then marked with a bovi. Subperiosteal dissection of the longissimus muscles were then done over these levels identifying uncovertebral joints bilaterally. Retractor was then placed deep to these muscles and held in place with a bed arm. Starting at C5-6, Mobile pins were placed into C5 and C6 and gentle distraction taken out over the levels. Grabiel rongeur used to remove disc material. Operating microscope brought in for visualization. Complete discectomy performed at this level with curette, rongeur and pituitary. High speed deandra used to remove osteophytes anteriorly and posteriorly until PLL was identified. 6-0 up curette then used to identify the canal and resect the PLL. 2-0 and 3-0 Kerrison used then to remove PLL and disc herniation and performed b/l foraminotomies. Once good decompression was accomplished, meticulous hemostasis was performed. Sizers were then placed under lateral fluoroscopy until the desired height and lordosis. Cage was then selected, packed with autograft and allograft and placed under lateral imaging. Once in good position it was tested and stable. Motors run before and after cage placement were stable. The wound was irrigated, and autograft placed lateral to the cage anteriorly for fusion. Mobile pin was then removed from C6 and placed into C4. Gentle distraction taken out over C4-5 now. Complete discectomy done at C4-5 as described including decompression, b/l foraminotomies and PLL resection. Burring of endplates was minimal, osteophytes removed as described. Spacers were then sized and placed under lateral imaging. Cage selected, packed with graft and placed under lateral images. Once in position, meticulous hemostasis performed, and motors remained stable before and after cage placement. AP image confirmed good placement of cages. Wound was irrigated. A separate, non-integrated plate was then selected and sized under lateral image. The plate was then placed with screws. Fixed screws drilled into C6 b/l and screws placed. Then into C5 and finally C4 with variable screws. All locking mechanisms were set, and all screws had good purchase. Final AP and lateral images taken confirmed good placement of hardware and good reduction and sabianist of height. The wound was then irrigated copiously with NSS. Surgicel placed deep in the wound. A deep drain placed out a separate incision and sewed into place. Layered closure then performed with 3-0 Vicryl in the platysma and subQ tissue. 4-0 Strata fix in the subcuticular tissue. The wound was then cleaned, and dried and skin glue placed. Once glue dried an Opifoam was placed. The patient was then transferred back to their hospital bed a-traumatically. The drain continued to hold suction. They were placed in a soft collar. They were then awakened by the department of anesthesia having tolerated the procedure well without complications.
--- NOTE | 2023-08-30 10:21 | FL ---
EXAMINATION TYPE: FL guidance operating room DATE OF EXAM: 08/30/2023 HISTORY: Fluoroscopy time Total dose area product (DAP) in uGy*m?, mGy*cm? (or similar): 1.0051 IMPRESSION: 1. Fluoroscopy time.
[2023-08-30] MEDS ORDERED: HYDROcodone/APAP 5-325MG 1 EACH TAB PO PRN (10:23)
[2023-08-30] MEDS ORDERED: ONDANSETRON 4 MG/2 ML VIAL IVP PRN (10:23)
[2023-08-30] MEDS ORDERED: HYDROmorphone 0.5 MG/0.5 ML SYRINGE IVP PRN (10:23)
[2023-08-30] MEDS: HYDROmorphone 0.5 MG/0.5 ML SYRINGE IVP PRN ×2 (11:45→12:26)
[2023-08-30] MEDS: HYDROcodone/APAP 10-325MG 1 EACH TAB PO PRN ×2 (13:27→22:36)
[2023-08-30] MEDS: CYCLOBENZAPRINE 5 MG TAB PO PRN ×2 (13:27→22:36)
[2023-08-30] MEDS: GABAPENTIN 400 MG CAP PO SCH ×2 (15:59→22:26)
[2023-08-30] MEDS: HYDROmorphone 1 MG/ML 1 ML SYRINGE IVP PRN ×2 (16:00→19:54)
--- NOTE | 2023-08-30 16:12 | P.CNPUL ---
History of Present Illness Consult date: 08/30/23 (Patient seen eval reexamined while covering for Dr. Thierry Richardson) Reason for consult: other Chief complaint: Patient was admitted electively for C-spine surgery History of present illness: 57-year-old male who underwent C4 5, C5 6 anterior cervical arthrodesis with application of non-integrated anterior plate and insertion of biochemical device 2 cages. Surgery was performed under general anesthesia estimated blood loss was 25 mL, IV fluids were given 1.2 L now samples were sent patient successfully weaned and extubated. Review of the record reveals that patient has a chronic severe cervical pain with progressive increased pain and medicine requirement, his past medical history significant for depression, hypertension, dyslipidemia, Review of Systems All systems: negative Past Medical History Past Medical History: Coronary Artery Disease (CAD), Cancer, Hyperlipidemia, Hypertension, Myocardial Infarction (ID) Additional Past Medical History / Comment(s): LEUKEMIA Last Myocardial Infarction Date:: 2012 History of Any Multi-Drug Resistant Organisms: None Reported Past Surgical History: Appendectomy, Heart Catheterization, Heart Catheterization With Stent, Orthopedic Surgery Additional Past Surgical History / Comment(s): shoulder rotator left, RT CTR Past Anesthesia/Blood Transfusion Reactions: No Reported Reaction Date of Last Stent Placement:: 2012 Smoking Status: Unknown if ever smoked Past Alcohol Use History: Rare - Past Family History Mother Family Medical History: No Reported History Brother(s) Family Medical History: Hypertension Medications and Allergies Home Medications Medication Instructions Recorded Confirmed Type Metoprolol Tartrate [Lopressor] 25 mg PO BID #60 tab 03/05/14 08/30/23 Rx Atorvastatin [Lipitor] 80 mg PO HS 10/27/15 08/30/23 History buPROPion HCL [Wellbutrin XL] 300 mg PO DAILY 10/27/15 08/30/23 History Enalapril Maleate [Vasotec] 20 mg PO BID 05/06/16 08/30/23 History Gabapentin [Neurontin] 800 mg PO TID 09/05/19 08/30/23 History Aspirin 81 mg PO DAILY chew 05/03/20 08/30/23 Rx Allergies Allergy/AdvReac Type Severity Reaction Status Date / Time No Known Allergies Allergy Verified 08/30/23 06:16 Physical Exam Vitals: Vital Signs Temp Pulse Resp BP Pulse Ox 08/30/23 13:12 97.8 F 61 18 173/92 95 08/30/23 12:30 67 12 111/65 100 08/30/23 12:15 63 12 159/72 100 08/30/23 12:00 59 L 12 177/63 96 08/30/23 11:45 62 12 193/91 93 L 08/30/23 11:30 69 12 181/88 95 08/30/23 11:15 72 12 176/77 100 08/30/23 11:00 61 12 171/81 100 08/30/23 10:45 62 12 171/81 100 08/30/23 10:30 65 12 138/79 100 08/30/23 10:23 97 F L 63 12 133/63 98 08/30/23 06:23 97.3 F L 65 18 146/85 98 Intake and Output 08/30/23 08/30/23 08/30/23 06:59 14:59 22:59 Intake Total 100 1450 Output Total 25 Balance 100 1425 Intake: IV 100 1450 Output: Estimated Blood Loss 25 Other: Weight 99.7 kg - Constitutional General appearance: average body habitus - EENT Eyes: EOMI ENT: normal oropharynx Ears: bilateral: normal - Neck Carotids: bilateral: upstroke normal Thyroid: bilateral: normal size - Respiratory Respiratory: bilateral: CTA - Cardiovascular Rhythm: regular Heart sounds: normal: S1, S2 - Gastrointestinal General gastrointestinal: normal bowel sounds, soft - Integumentary Integumentary: normal turgor - Neurologic Neurologic: CNII-XII intact - Musculoskeletal Musculoskeletal: gait normal, generalized weakness - Psychiatric Psychiatric: A&O x's 3, appropriate affect, intact judgment & insight Assessment and Plan Assessment: C-spine pain status postC4 5, C5 6 anterior cervical arthrodesis with application of non-integrated anterior plate and insertion of biochemical device 2 cages Dyslipidemia Hypertension hypertensive cardiovascular disease Mood disorder depression Plan: Resume oral medicine from home to be resumed once able to do so including bupropion, metoprolol, atorvastatin, enalapril Time with Patient: Greater than 30
--- NOTE | 2023-08-30 17:54 | CT ---
EXAMINATION TYPE: CT cervical spine wo con DATE OF EXAM: 08/30/2023 COMPARISON: None HISTORY: 57-year-old male Post cervical fusion. TECHNIQUE: Contiguous axial scanning of the cervical spine without IV contrast. Coronal and sagittal reconstructions performed. CT DLP: 664.8 mGycm Automated exposure control for dose reduction was used. FINDINGS: There are immediate postoperative changes of C4-C6 ACDF. The hardware appears appropriately positione d. Moderate disc/endplate degenerative change below the fusion at C6-C7. Disc osteophyte complex may contribute to mild spinal canal stenosis here. Air within the retropharyngeal space and scattered throughout the anterior soft tissues again, relati ng to recent operation. No craniocervical junction appear mildly, predental space widening, or prevertebral soft tissue swell ing. Some degenerative change in the C1 dens articulation. Facet and uncovertebral joint arthropathy is present throughout. At C2-C3, changes result in moderate right and mild left neuroforaminal stenosis. At C3-C4, changes result in moderate bilateral neural foraminal stenosis. At C4-C5, changes result in severe right and moderate left neural foraminal stenosis. At C5-C6, changes result in moderate left and mild right neural foraminal stenosis. At C6/C7, changes result in moderate to severe left and mild right neuroforaminal stenosis. At C7-T1, mild right neural foraminal stenosis. IMPRESSION: IMMEDIATE POSTOPERATIVE CHANGES AFTER PLACEMENT OF C4-C6 ACF WHICH APPEARS UNCOMPLICATED. BACKGROUND DEGENERATIVE CHANGE OUTLINED ABOVE. NO MALALIGNMENT.
[2023-08-31] MEDS: HYDROmorphone 1 MG/ML 1 ML SYRINGE IVP PRN ×5 (03:09→18:32)
[2023-08-31 06:41] LABS: Basophils # (A) 0.1 k/uL (0-0.2); Basophils % (A) 1 %; Eosinophils # (A) 0.1 k/uL (0-0.7); Eosinophils % (A) 1 %; HCT 44.4 % (39.0-53.0); HGB 14.8 gm/dL (13.0-17.5); Lymphocytes % (A) 10 %; MCH 31.4 pg (25.0-35.0); MCHC 33.2 g/dL (31.0-37.0); MCV 94.6 fL (80.0-100.0); Mean Platelet Volume 10.4; Monocytes # (A) 0.6 k/uL (0-1.0); Monocytes % (A) 5 %; Neutrophils # (A) 8.8 k/uL (1.3-7.7); Neutrophils % (A) 82 %; Platelet Count 125 k/uL (150-450); RDW 14.5 % (11.5-15.5); WBC 10.7 k/uL (3.8-10.6)
[2023-08-31] MEDS: LACTATED RINGERS 1,000 ML IV SCH (06:52)
[2023-08-31 06:57] LABS: African American GFR (CKD) >90 (>60 ml/min/1.73 sqM); Anion Gap 11 mmol/L; Blood Urea Nitrogen 20 mg/dL (9-20); Calcium 9.4 mg/dL (8.4-10.2); Carbon Dioxide 27 mmol/L (22-30); Chloride 102 mmol/L (98-107); Glucose 131 mg/dL (74-99); Non-African American GFR(CKD) 82 (>60 ml/min/1.73 sqM); Sodium 140 mmol/L (137-145)
[2023-08-31] MEDS: GABAPENTIN 400 MG CAP PO SCH ×3 (08:08→21:01)
[2023-08-31] MEDS: HYDROcodone/APAP 10-325MG 1 EACH TAB PO PRN ×2 (08:09→21:02)
[2023-08-31] MEDS: SENNOSIDES-DOCUSATE SODIUM 1 EACH TAB PO SCH (08:09)
[2023-08-31] MEDS: CYCLOBENZAPRINE 5 MG TAB PO PRN ×2 (08:09→21:01)
[2023-08-31] MEDS ORDERED: SENNOSIDES 8.6 MG TAB PO SCH (09:00)
--- NOTE | 2023-08-31 13:34 | P.PN ---
Subjective Progress Note Date: 08/31/23 Principal diagnosis: 1. C4-6 spondylosis and stenosis 2.Upper extremity radiculopathy 3. Upper extremity weakness Patient seen and examined this afternoon. Patient is resting comfortably in bed. Patient does have complaint of bilateral shoulder pain and stiffness. Informed patient to utilize ice packs over bilateral shoulders and posterior neck. Soft cervical collar is intact. Patient reports that he has been ambulatory within room without difficulty. Patient is looking forward to possible discharge tomorrow 09/01/2023. Patient has been urinating without difficulty. He does report passing gas no bowel movement at this time. No acute concerns. Objective - Vital Signs Vital signs: Vital Signs Temp 97.9 F 08/31/23 07:15 Pulse 60 08/31/23 07:15 Resp 19 08/31/23 07:15 BP 159/85 08/31/23 07:15 Pulse Ox 99 08/31/23 07:15 FiO2 Intake & Output 08/30/23 08/31/23 08/31/23 18:59 06:59 18:59 Intake Total 1930 Output Total 25 Balance 1905 Weight 99.7 kg Intake: IV 1450 Oral 480 Output: Estimated Blood Loss 25 Other: Voiding Method Toilet # Voids 2 3 - Exam Physical Examination General: The patient is awake and alert, in no acute distress Skin: Skin is warm and dry with no obvious rashes or lesions. Surgical incision to the right anterior cervical spine. Eye: Pupils are equal, round and reactive to light, extra-ocular movements are intact; there is normal conjunctiva bilaterally. Neck: The neck is supple, there is mild tenderness and limited ROM due to surgical procedure and pain. Cardiovascular: There is a regular rate and rhythm. No murmur, rub or gallop is appreciated. Respiratory: Lungs are clear to auscultation, respirations are non-labored, breath sounds are equal. Gastrointestinal: Soft, non-distended, non-tender abdomen. Back: There is no tenderness to palpation in the midline, paralumbar, parathoracic or buttocks region. There is no obvious deformity . Musculoskeletal: ROM limited secondary to pain and stiffness from surgical procedure. Muscle strength in all major muscle groups of bilateral upper extremities 4/5, bilateral lower extremities 5/5. Neurological: CN 2-12 intact. There are no obvious motor or sensory deficits. Movement and coordination equal and intact. Sensory exam to light touch intact C5-T1 and intact from L2-S1. Reflexes 2/4 in bilateral upper and lower extremities. Negative Hoffmans, babinski, and clonus signs. Psychiatric: Cooperative, appropriate mood & affect, normal judgment. - Labs CBC & Chem 7: 08/31/23 06:03 08/31/23 06:03 Labs: Abnormal Lab Results - Last 24 Hours (Table) 08/31/23 08/31/23 Range/Units 06:03 06:03 WBC 10.7 H (3.8-10.6) k/uL Plt Count 125 L (150-450) k/uL Neutrophils # 8.8 H (1.3-7.7) k/uL Glucose 131 H (74-99) mg/dL Assessment and Plan Assessment: Postop day 1: C4-C6 ACDF 1. C4-6 spondylosis and stenosis 2.Upper extremity radiculopathy 3. Upper extremity weakness Plan: -Appreciate e business consultant and team management. -Activity: Ambulate QID, OOB all meals, up and about, limit lifting bending twisting to less than 5 lbs. Use walker or cane if needed for stability. -Daily PT/OT, increase ambulation strength and balance. -Soft cervical collar at all times, patient may remove for showers. -Pain control: Adequate at this time -Meds: reviewed -GI ppx: senna, Miralax -DVT PPX: OK to restart Heparin tonight -Hygiene: Shower today. Maintain dressing clean and dry. -Encourage IS 10x/hr -Dispo: Anticipate discharge home tomorrow. *I reviewed and discussed this case with my attending Dr. Ponce, whom has reviewed this chart and films and is in agreement with assessment and plan of care as outlined above. I have personally seen and examined the patient, performed the documentation and the assessment and plan as written. Number of minutes spent on the visit: 15m.
--- NOTE | 2023-08-31 20:44 | CT ---
EXAMINATION TYPE: CT chest wo con DATE OF EXAM: 08/31/2023 COMPARISON: 04/21/2020 HISTORY: 57-year-old male asthma, COPD. TECHNIQUE: Contiguous axial scanning of the chest without IV contrast. Coronal/sagittal reconstructio ns performed. CT DLP: 517.3mGycm. Automatic exposure control utilized for a dose reduction. FINDINGS: Heart normal size without pericardial effusion. Extensive LAD and RCA coronary calcifications are pre sent. There is mild aneurysm of the ascending aorta 4.3 cm within the short vessel branching anatomy. Some subcutaneous fat stranding and mild skin thickening along the anterior midline lower neck, axial image 20. Correlate for any signs/symptoms of cellulitis here. No thoracic lymphadenopathy by CT size criteria. There is mild diffuse bronchial wall thickening without consolidation or pleural effusion. Visualized upper abdomen shows hilar splenules. Bones: Mild multilevel degenerative disc disease. IMPRESSION: 1. Mild diffuse bronchial wall thickening could reflect bronchitis or asthma. No focal infiltrate. 2. Subcutaneous fat stranding and mild skin thickening along the anterior midline lower neck. Correla te for any signs/symptoms of cellulitis here. 3. Extensive LAD and RCA coronary calcifications which are a marker for coronary artery disease. 4. Mild aneurysm ascending aorta 4.3 cm (versus 4.2 cm in 2020).
[2023-08-31] MEDS: ATORVASTATIN 80 MG TAB PO SCH (21:01)
[2023-08-31] MEDS: lisinopriL 20 MG TAB PO SCH (21:01)
[2023-08-31] MEDS: METOPROLOL TARTRATE 25 MG TAB PO SCH (21:01)
[2023-08-31] MEDS ORDERED: hydrALAZINE HCL 20 MG/ML 1 ML VIAL IVP PRN (23:31)
--- NOTE | 2023-09-01 01:45 | CONS ---
CONSULTATION HISTORY OF PRESENT ILLNESS: A 57-year-old white male status post cervical surgery, medical management. He has hypertension, COPD. We got medicine ordered his home medicines include Lipitor, Wellbutrin XR, aspirin, Zestril, Lopressor. Home medicines were reviewed, reordered. PHYSICAL EXAMINATION: VITAL SIGNS: Temperature 97.7, pulse 60 to 64, respiratory rate 16 to 18. Blood pressure 151 to 174 over 78 to 62, O2 sat 94% on room air. CARDIOVASCULAR: S1, S2. LUNGS: Decreased breath sounds x4. GI: Soft. PSYCH: Fair mood and affect. NEUROLOGIC: Alert and oriented x3. OPHTHALMOLOGICAL: Pupils are equal, round, and reactive. NEUROLOGIC: Cranial nerves intact. ASSESSMENT: 1. Chronic obstructive pulmonary disease exacerbation. 2. Acute hypoxemic respiratory failure. 3. Hypertension acceleration status post cervical surgery. Blood pressure control will be done. Updraft treatments will be given. Prognosis guarded. Await for echo. CAT scan of the chest. We gave him with home meds hydralazine for blood pressure over 160 systolic. Please see further notes. MMODL / IJN: [id number] /
[2023-09-01] MEDS: HYDROmorphone 1 MG/ML 1 ML SYRINGE IVP PRN (05:29)
[2023-09-01] MEDS: LACTATED RINGERS 1,000 ML IV SCH (06:08)
[2023-09-01] MEDS: METOPROLOL TARTRATE 25 MG TAB PO SCH ×2 (08:59→20:33)
[2023-09-01] MEDS: SENNOSIDES-DOCUSATE SODIUM 1 EACH TAB PO SCH (08:59)
[2023-09-01] MEDS: ASPIRIN 81 MG PO SCH (08:59)
[2023-09-01] MEDS: GABAPENTIN 400 MG CAP PO SCH ×3 (08:59→21:23)
[2023-09-01] MEDS: buPROPion XL 300 MG TAB.ER.24H PO SCH (08:59)
[2023-09-01] MEDS: lisinopriL 20 MG TAB PO SCH ×2 (08:59→20:32)
[2023-09-01] MEDS: HYDROcodone/APAP 10-325MG 1 EACH TAB PO PRN (09:00)
[2023-09-01] MEDS ORDERED: DEXAMETHASONE SOD PHOSPHATE 4 MG/ML 1 ML VIAL IVP STA (09:53)
[2023-09-01] MEDS ORDERED: HYDROcodone/APAP 10-325MG 1 EACH TAB PO PRN (09:54)
--- NOTE | 2023-09-01 10:03 | P.PN ---
Subjective Progress Note Date: 09/01/23 Principal diagnosis: 1. C4-6 spondylosis and stenosis 2.Upper extremity radiculopathy 3. Upper extremity weakness Patient seen and examined this morning. Patient is resting comfortably in bed. Patient does have complaint of difficulty in swallowing. Soft cervical collar is intact. Patient reports that he has been ambulatory within room without difficulty. ECHO has been ordered by medicine, awaiting results. No acute concerns. Objective - Vital Signs Vital signs: Vital Signs Temp 97.9 F 09/01/23 02:00 Pulse 77 09/01/23 02:00 Resp 16 09/01/23 02:00 BP 163/97 09/01/23 02:00 Pulse Ox 98 09/01/23 02:00 FiO2 Intake & Output 08/31/23 09/01/23 09/01/23 18:59 06:59 18:59 Other: # Voids 3 - Exam Physical Examination General: The patient is awake and alert, in no acute distress Skin: Skin is warm and dry with no obvious rashes or lesions. Surgical incision to the right anterior cervical spine. Eye: Pupils are equal, round and reactive to light, extra-ocular movements are intact; there is normal conjunctiva bilaterally. Neck: The neck is supple, there is mild tenderness and limited ROM due to surgical procedure and pain. Cardiovascular: There is a regular rate and rhythm. No murmur, rub or gallop is appreciated. Respiratory: Lungs are clear to auscultation, respirations are non-labored, breath sounds are equal. Gastrointestinal: Soft, non-distended, non-tender abdomen. Back: There is no tenderness to palpation in the midline, paralumbar, parathoracic or buttocks region. There is no obvious deformity . Musculoskeletal: ROM limited secondary to pain and stiffness from surgical procedure. Muscle strength in all major muscle groups of bilateral upper extremities 4/5, bilateral lower extremities 5/5. Neurological: CN 2-12 intact. There are no obvious motor or sensory deficits. Movement and coordination equal and intact. Sensory exam to light touch intact C5-T1 and intact from L2-S1. Reflexes 2/4 in bilateral upper and lower extremities. Negative Hoffmans, babinski, and clonus signs. Psychiatric: Cooperative, appropriate mood & affect, normal judgment. - Labs CBC & Chem 7: 08/31/23 06:03 11/08/23 06:03 Assessment and Plan Assessment: Postop day 2: C4-C6 ACDF 1. C4-6 spondylosis and stenosis 2.Upper extremity radiculopathy 3. Upper extremity weakness Plan: -Appreciate pmo consultant and team management. -Activity: Ambulate QID, OOB all meals, up and about, limit lifting bending twis ting to less than 5 lbs. Use walker or cane if needed for stability. -Daily PT/OT, increase ambulation strength and balance. -Soft cervical collar at all times, patient may remove for showers. -Pain control: Adequate at this time -Meds: reviewed -GI ppx: senna, Miralax -DVT PPX: Heparin -Hygiene: Shower today. Maintain dressing clean and dry. -Encourage IS 10x/hr -Dispo: Anticipate discharge home later today vs tomorrow. Patient is cleared from Orthopedic standpoint for discharge. *I reviewed and discussed this case with my attending Dr. Ponce, whom has reviewed this chart and films and is in agreement with assessment and plan of care as outlined above. I have personally seen and examined the patient, performed the documentation and the assessment and plan as written. Number of minutes spent on the visit: 15m.
[2023-09-01] MEDS: CYCLOBENZAPRINE 5 MG TAB PO SCH ×3 (11:01→21:23)
[2023-09-01] MEDS: HYDROcodone/APAP 10-325MG 1 EACH TAB PO SCH ×4 (11:02→21:22)
--- NOTE | 2023-09-01 18:10 | CA ---
Transthoracic Echo Report Name: Delon Castellano Age: 57 Gender: M : 1965 Exam Date: 09/01/2023 15:05 Exam Location: [facility] Ht (in): 69 Wt (lb): 219 Ordering Physician: Thierry Richardson MD Attending/Referring Phys: Flipping Machine Operator Diony Lynne Procedure CPT: Indications: dyspnea Cardiac Hx: Technical Quality: Fair Contrast 1: Total Dose (mL): Contrast 2: Total Dose (mL): MEASUREMENTS (Male / Female) Normal Values 2D ECHO LVOT Diameter 2.1 cm Aortic Root Diameter 2.8 cm LA Systolic Diameter LX 1.8 cm 3.0 - 4.0 / 2.7 - 3.8 cm LV Diastolic Volume MOD BP 72.7 cm??? 67 - 155 / 56 - 104 cm??? LV Systolic Volume MOD BP 26.9 cm??? 22 - 58 / 19 - 49 cm??? LV Ejection Fraction MOD BP 63.0 % >= 55 % LV Cardiac Index MOD BP 1294.7 cm???/min???m??? LV Diastolic Volume MOD 4C 76.9 cm??? LV Systolic Volume MOD 4C 28.9 cm??? LV Ejection Fraction MOD 4C 62.4 % LV Cardiac Index MOD 4C 1354.9 cm???/min???m??? LV Diastolic Length 4C 7.3 cm LV Systolic Length 4C 6.5 cm LV Diastolic Volume MOD 2C 65.6 cm??? LV Systolic Volume MOD 2C 22.4 cm??? LV Ejection Fraction MOD 2C 65.8 % LV Cardiac Index MOD 2C 1219.1 cm???/min???m??? LV Diastolic Length 2C 6.9 cm LV Systolic Length 2C 5.8 cm LA Volume 37.8 cm??? 18 - 58 / 22 - 52 cm??? LA Volume Index 17.0 cm???/m??? 16 - 28 cm???/m??? DOPPLER AV Peak Velocity 153.9 cm/s AV Peak Gradient 9.5 mmHg LVOT Peak Velocity 119.1 cm/s LVOT Peak Gradient 5.7 mmHg LVOT Velocity Time Integral 23.6 cm LVOT Stroke Volume 85.4 cm??? LVOT Stroke Volume Index 39.8 ml/m??? LVOT Cardiac Index 2410.8 cm???/min???m??? AV Area Cont Eq pk 2.8 cm??? MV Peak Velocity 96.7 cm/s MV Peak Gradient 3.7 mmHg MV Mean Velocity 48.3 cm/s MV Mean Gradient 1.2 mmHg MV Velocity Time Integral 40.9 cm Mitral E Point Velocity 83.4 cm/s Mitral A Point Velocity 82.9 cm/s Mitral E to A Ratio 1.0 MV Deceleration Time 277.1 ms PV Peak Velocity 121.5 cm/s PV Peak Gradient 5.9 mmHg FINDINGS Left Ventricle Normal LV size and wall thickness. Left ventricular ejection fraction is estimated at 55-60 %.normal left ventricular wall motion. Right Ventricle Normal right ventricular size. Right Atrium Normal right atrial size. Left Atrium Normal left atrial size. Mitral Valve Structurally normal mitral valve.no mitral regurgitation. Aortic Valve Trileaflet aortic valve. No aortic regurgitation. No aortic stenosis. Tricuspid Valve Structurally normal tricuspid valve.no tricuspid regurgitation. Pulmonic Valve Pulmonic valve not well visualized. No pulmonic regurgitation. Pericardium No pericardial effusion. Aorta Normal size aortic root. CONCLUSIONS 1. Normal left ventricle size and systolic function 2. No significant valvular abnormalities on Doppler study Previewed by: Dr. Lily Willett MD (Electronically Signed) Final Date: 01 September 2023 18:10
[2023-09-01] MEDS: amLODIPine 5 MG TAB PO SCH (18:40)
[2023-09-01] MEDS: ATORVASTATIN 80 MG TAB PO SCH (20:32)
--- NOTE | 2023-09-01 22:24 | PN ---
PROGRESS NOTE SUBJECTIVE: This is a 57-year-old white male, status post cervical surgery. Chest CT shows bronchial wall thickening, degenerative disk disease. 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 Echo shows ejection fraction is good 62% with a good ejection fraction. Continues to do well at this time. Possibly will go home to follow up as an outpatient next day or 2 recurrent treatment. PROGNOSIS: Guarded. Please see further orders. MMODL / IJN: [id number] /
[2023-09-02] MEDS: HYDROcodone/APAP 10-325MG 1 EACH TAB PO SCH ×3 (01:51→09:24)
[2023-09-02] MEDS: LACTATED RINGERS 1,000 ML IV SCH (05:51)
--- NOTE | 2023-09-02 08:58 | P.PN ---
Subjective Progress Note Date: 09/02/23 Principal diagnosis: 1. C4-6 spondylosis and stenosis 2.Upper extremity radiculopathy 3. Upper extremity weakness Patient seen and examined this morning. Patient is resting comfortably in bed. Patient states he has had improvement with oral intake and swelling of the cervical spine. Soft cervical collar is intact. Patient reports that he has been ambulatory within room without difficulty. No acute concerns. Objective - Vital Signs Vital signs: Vital Signs Temp 97.4 F L 09/02/23 02:00 Pulse 63 09/02/23 02:00 Resp 18 09/01/23 19:57 BP 128/73 09/02/23 02:00 Pulse Ox 97 09/02/23 02:00 FiO2 Intake & Output 09/01/23 09/01/23 09/02/23 06:59 18:59 06:59 Other: # Voids 2 2 - Exam Physical Examination General: The patient is awake and alert, in no acute distress Skin: Skin is warm and dry with no obvious rashes or lesions. Surgical incision to the right anterior cervical spine. Eye: Pupils are equal, round and reactive to light, extra-ocular movements are intact; there is normal conjunctiva bilaterally. Neck: The neck is supple, there is mild tenderness and limited ROM due to surgical procedure and pain. Cardiovascular: There is a regular rate and rhythm. No murmur, rub or gallop is appreciated. Respiratory: Lungs are clear to auscultation, respirations are non-labored, breath sounds are equal. Gastrointestinal: Soft, non-distended, non-tender abdomen. Back: There is no tenderness to palpation in the midline, paralumbar, parathoracic or buttocks region. There is no obvious deformity . Musculoskeletal: ROM limited secondary to pain and stiffness from surgical procedure. Muscle strength in all major muscle groups of bilateral upper extremities 4/5, bilateral lower extremities 5/5. Neurological: CN 2-12 intact. There are no obvious motor or sensory deficits. Movement and coordination equal and intact. Sensory exam to light touch intact C5-T1 and intact from L2-S1. Reflexes 2/4 in bilateral upper and lower extremities. Negative Hoffmans, babinski, and clonus signs. Psychiatric: Cooperative, appropriate mood & affect, normal judgment. - Labs CBC & Chem 7: 08/31/23 06:03 08/31/23 06:03 Assessment and Plan Assessment: Postop day 3: C4-C6 ACDF 1. C4-6 spondylosis and stenosis 2.Upper extremity radiculopathy 3. Upper extremity weakness Plan: -Appreciate sap consultant and team management. -Activity: Ambulate QID, OOB all meals, up and about, limit lifting bending twisting to less than 5 lbs. Use walker or cane if needed for stability. -Daily PT/OT, increase ambulation strength and balance. -Soft cervical collar at all times, patient may remove for showers. -Pain control: Adequate at this time -Meds: reviewed -GI ppx: senna, Miralax -DVT PPX: Heparin -Hygiene: Shower today. Maintain dressing clean and dry. -Encourage IS 10x/hr -Dispo: Discharge home today. *I reviewed and discussed this case with my attending Dr. Ponce, whom has reviewed this chart and films and is in agreement with assessment and plan of care as outlined above. I have personally seen and examined the patient, performed the documentation and the assessment and plan as written. Number of minutes spent on the visit: 15m.
--- NOTE | 2023-09-02 08:59 | P.DS ---
Providers Date of admission: 08/30/23 05:47 Expected date of discharge: 09/02/23 Attending physician: Tanvir Ponce DO Consults: 08/30/23 10:27 Consult Physician Routine Consulting Provider: Zuhair Freed Consult Reason/Comments: Medical Management Do you want consulting provider notified?: Yes Primary care physician: [facility] Course: Hospital Course: The patient was evaluated preoperatively and found to have the diagnosis of cervical spondylosis. They underwent appropriate preoperative care and were willing to undergo the intended procedure. They underwent a successful C4-C6 ACDF, were recovered appropriately and sent to the floor. While on the floor they worked with physical therapy, occupational therapy and nursing to enhance their recovery experience. Their pain was well controlled through their stay and they were started on appropriate medications, DVT ppx modalities, activity and dietary needs. Daily labs were monitored closely, and transfusions were only used when necessary. Medicine as well as other consulting services have made their input and have helped with our team approach and multidisciplinary care. PT milestones have been met and passed and they have made the recommendation of home for this patient and treating providers agree with this care path. The patient will be discharged home with appropriate medications, instructions and follow-up information and in stable condition. Patient Condition at Discharge: Good Plan - Discharge Summary Discharge Rx Participant: No New Discharge Prescriptions: New HYDROcodone/APAP 10-325MG [Mcallen 10-325] 1 tab PO Q4-6H PRN #42 tab PRN Reason: Pain Sennosides/Docusate Sodium [Senna Plus 8.6-50 mg Softgel] 1 each PO DAILY PRN #20 capsule PRN Reason: Constipation Cyclobenzaprine [Flexeril] 5 mg PO TID PRN #60 tablet PRN Reason: Muscle Spasm cefaDROXiL [Duricef] 500 mg PO Q12HR #10 cap No Action Metoprolol Tartrate [Lopressor] 25 mg PO BID #60 tab buPROPion HCL [Wellbutrin XL] 300 mg PO DAILY Atorvastatin [Lipitor] 80 mg PO HS Enalapril Maleate [Vasotec] 20 mg PO BID Gabapentin [Neurontin] 800 mg PO TID Aspirin 81 mg PO DAILY chew Discharge Medication List Metoprolol Tartrate [Lopressor] 25 mg PO BID #60 tab 03/05/14 [Rx] Atorvastatin [Lipitor] 80 mg PO HS 10/27/15 [History] buPROPion HCL [Wellbutrin XL] 300 mg PO DAILY 10/27/15 [History] Enalapril Maleate [Vasotec] 20 mg PO BID 05/06/16 [History] Gabapentin [Neurontin] 800 mg PO TID 09/05/19 [History] Aspirin 81 mg PO DAILY chew 05/03/20 [Rx] Cyclobenzaprine [Flexeril] 5 mg PO TID PRN #60 tablet 09/01/23 [Rx] HYDROcodone/APAP 10-325MG [Mcallen 10-325] 1 tab PO Q4-6H PRN #42 tab 09/01/23 [Rx] Sennosides/Docusate Sodium [Senna Plus 8.6-50 mg Softgel] 1 each PO DAILY PRN #20 capsule 09/01/23 [Rx] cefaDROXiL [Duricef] 500 mg PO Q12HR #10 cap 09/01/23 [Rx] Follow up Appointment(s)/Referral(s): Thierry Richardson MD [Primary Care Provider] - 09/06/23 10:00 am Tanvir Ponce DO [Doctor of Osteopathic Medicine] - 09/14/23 1:45 pm Activity/Diet/Wound Care/Special Instructions: Spine Discharge and Recovery Instructions Date of Surgery: 08/30/2023 Diagnosis: Cervical spondylosis with myelopathy Procedure: C4-C6 ACDF Medications: See medication list All medication refills should be obtained through your primary care doctor or your clinic spine surgeon. Please discuss prescription refills at your follow up appointment. Do not call the hospital for medication refills. Dressing: Leave your dressing in place for a total of 5 days post operatively. Then you may remove your dressing and leave open to air. Keep the area clean and if not able to keep area clean, then cover with sterile gauze and tape. Showering: You may shower 3 days after your procedure allowing soap and water to run over incision. Do not scrub. Do not soak. Blot dry. Follow up: Please confirm a follow up appointment with your surgeon 3 weeks post operatively. Please make an appointment to follow up with your PCP in 1-2 weeks after surgery for evaluation 3 phase, 3-week plan POST OP WEEKS 1-3 1. Lifting/carrying/pushing/pulling limited to less than 5 pounds. 2. Do not sit for longer than 15 minutes at one time. Get up and walk around. Prolonged sitting is NOT advised. If you lay down, see if you can tolerate laying down on you front (belly side) 3. Walk for periods of 15 minutes = 1 mile but no longer; do it multiple times times each day. 4. Ice your low back after activity. POST OP WEEKS 3-6 1. Lifting limited to less than 20 pounds. 2. Do not sit for longer than 30 minutes at a time. Frequently change positions. Use a sit-to stand workstation or take frequent breaks from sitting if you have returned to work. 3. Walk for 30 minutes each day. If possible, do these three or more times a day POST OP WEEKS 6+ At your 6-week appointment we will give you a physical therapy referral to focus on a core stabilization and strengthening program. You should also work on leg & buttock strengthening, hamstring & quadriceps stretching, and continue a low impact aerobic activity program such as swimming, walking, or riding a stationary bicycle. During the initial 6 weeks after your surgery, you are at the highest risk of re-injuring your spine. You should generally avoid BLTs (bending, lifting and twisting combination motions) and follow the above guidelines to reduce the chance of reinjury. You can anticipate post op appointments in our office at approximately 3 weeks and 6 weeks after your surgery. INCISION CARE: If your incision is not draining you do NOT need to cover it with a dressing. Keep your incision clean, dry and intact. In most cases, we apply skin glue, thomas or sutures to the incision at the time of surgery. This will be like a crust or have the appearance of a scab and will fall off in time on its own. The stitches or thomas need to be removed at 3 weeks post op appointment. You may begin to shower 3 days after surgery (this allows the glue to bailey well). However, please avoid scrubbing the incision site or peeling off any of the skin glue. This will ensure optimal healing of your incision. Also, during this time avoid soaking the incision area in water - this includes swimming pools, hot tubs or baths. No ointments, lotions or oils on the incision until your surgeon allows. Leave thomas, sutures or glue in place. Neurological dysfunction that comes on suddenly can also be a sign of a stroke. Below some common symptoms of a stroke are listed: B - balance difficulty such as sudden onset walking or leaning to one side - NEW E - eye problem such as sudden double vision or trouble seeing on one side - NEW F - Facial weakness or numbness on one side - NEW A - Arm or leg weakness or numbness on one side - NEW S - Slurred speech or difficulty with word finding - NEW T - Time is BRAIN! Call 911 as soon as you recognize these symptoms Diet: Consume a regular diet rich in vegetables and lean protein such as chicken or fish. You should consume in a ratio of approximately 20% fats|40% carbohydrates|40%protein. Vegetables, sweet potatoes, brown rice or quinoa are examples of good carbohydrates. Chips, white bread, cookies and sweets/sugar are examples of bad carbohydrates. Limit your bad carbs, go wild with good carbs. "Life's Simple 7" Guidelines as per [place] [employer] These will help you reclaim your life after surgery and helpdesk analyst in your recovery, keeping in mind your restrictions. (1) Get Active. Physical activity can help people lose weight, control high blood pressure and cholesterol, feel emotionally better, and sleep better. (2) Control Cholesterol. Avoid a diet high in saturated fat, trans fat, & cholesterol. Limit whole milk & cream, ice cream, butter, egg yolks, processed meats (like sausage and hot dogs), and fatty meats. Choose healthy foods that are low in saturated fat, trans fat and cholesterol which include: Fruits and vegetables, fiber rich grain products (like whole grain pasta and brown rice), lean meat such as chicken, fish, nuts, seeds, and legumes. (3) Eat Better. Eat small portions. Shop at the grocery with a list and do not stray from it. Tips for a healthy diet include: Limit sodium intake to less than 1500mg daily, avoid prepackaged, processed, and fast foods, choose a diet rich in fruits, vegetables, and whole grain, high fiber foods, and limit saturated & cholesterol in your diet. (4) Manage Blood Pressure. If you have high blood pressure, you should have a cuff at home so that you can check your blood pressure regularly. Be sure you have a good cuff. An arm one is generally better than a wrist one. Bring the cuff to a doctor's appointment to validate that the measurements that your cuff are taking are accurate. Take your blood pressure twice daily when you are sitting down and relaxing. Record the numbers in a log and bring this log with you to your doctors' appointments. (5) Lose Weight if your BMI is above 25. A healthy BMI is between 19-25. To calculate Your BMI, you may use a Standard BMI Calculator on the NIH BMI website: <www.nhlbi.nih.gov/guidelines/obesity/BMI/bmicalc.htm>. Weigh oneself daily. If you are overweight, set a goal to lose weight. A pound a week loss if needed is a good target. (6) Reduce Blood Sugar. Limit foods and liquids with "added sugars." (Added sugars include sucrose, fructose, glucose, maltose, dextrose, high fructose corn syrup, corn syrup, concentrated fruit juice and honey). (7) Stop Smoking. If you smoke, quitting smoking is one of the best things that you can do for your health. Smoking increases your risk of heart attack, stroke, and peripheral vascular disease, which is a build-up of plaque in your arteries. Please discard all the cigarettes and lighters in your house. Have a plan for what you will do when you have the urge to smoke. Direct and second- hand smoke shortens your life as well as the lives of your family, friends and others around you. For your health and the health of those around you, please consider quitting! Proper Bending Body Mechanics: Maintain a wide stance with one foot slightly in front of the other. Keep your back straight. Bend utilizing the strength in your hips and knees. Do not bend at the waist. Maintain the lifted object at your waist-level close to your body. Avoid lifting weight that causes immediately pain or pain anywhere in the body afterwards. Smoking/Nicotine If there was ever one thing that you could do to increase your overall health, decrease your risk of cardiovascular problems by about 39% the second you make the choice, it is to STOP SMOKING. Your body's most instant gratification is the second you stop smoking. We have all heard the studies, read the articles but it is true, smoking is extremely bad for your overall health, and moreover it is detrimental to your bone health. Nicotine, IN ANY FORM, kills bone cells, prevents your body from healing fractures, and significantly prolongs healing after surgery. In spine surgery specifically, it increases your risk of not healing your bones to create a fusion and increases your risk of having a revision surgery due to this up to 60%. I know it is hard. I know it feels impossible. But there are ways. Take control of your life. We are here to help you through it. And when you are ready, ask us and we can direct you to help if you desire. Use the START Plan to Quit Smoking (please visit the Helpguide.org website listed below for more information): S = Set a quit date. Choose a date within the next 2 weeks, so you have enough time to prepare without losing your motivation to quit. If you mainly smoke at work, quit on the weekend, so you have a few days to adjust to the change. T = Tell family, friends, and co-workers that you plan to quit. Let your friends and family in on your plan to quit smoking and tell them you need their support and encouragement to stop. Look for a quit álvaro who wants to stop smoking as well. You can help each other get through the rough times. A = Anticipate and plan for the challenges you'll face while quitting. Most people who begin smoking again do so within the first 3 months. You can help yourself make it through by preparing ahead for common challenges, such as nicotine withdrawal and cigarette cravings. R = Remove cigarettes and other tobacco products from your home, car, and work. Throw away all your cigarettes (no emergency pack!), lighters, ashtrays, and matches. Wash your clothes and freshen up anything that smells like smoke. Shampoo your car, clean your drapes and carpet, and steam your furniture. T = Talk to your doctor about getting help to quit. Your doctor can prescribe medication to help with withdrawal and suggest other alternatives. If you can't see a doctor, you can get many products over the counter at your local pharmacy or grocery store, including the nicotine patch, nicotine lozenges, and nicotine gum. Resources for Quitting Smoking: <https://www.[place].gov/documents/[facility]/Quit_Tobacco_Resources_for_patients_313 480_7.pdf> Supplementation: Take recommended dosages of Vitamin D and Calcium to help fortify your bones and help them to heal. See your health maintenance packet for dosages and recommended levels. DVT/VTE prophylaxis: You will be given compression stockings from the hospital. Wear these daily for the first two weeks after surgery. You may take them off at night. You may be prescribed a medication to help thin your blood. Take this as directed. If you are not prescribed this medication, early and frequent ambulation has been shown to be the best prophylaxis to deep vein thrombosis and sequelae related to this event. Discharge Disposition: HOME WITH HOME HEALTH SERVICES
[2023-09-02 09:14] VITALS: BP 136/78; PULSE 73; RESP 20; TEMP 97.9
[2023-09-02] MEDS: SENNOSIDES-DOCUSATE SODIUM 1 EACH TAB PO SCH (09:22)
[2023-09-02] MEDS: ASPIRIN 81 MG PO SCH (09:22)
[2023-09-02] MEDS: lisinopriL 20 MG TAB PO SCH (09:22)
[2023-09-02] MEDS: CYCLOBENZAPRINE 5 MG TAB PO SCH (09:23)
[2023-09-02] MEDS: amLODIPine 5 MG TAB PO SCH (09:24)
[2023-09-02] MEDS: GABAPENTIN 400 MG CAP PO SCH (09:24)
[2023-09-02] MEDS: buPROPion XL 300 MG TAB.ER.24H PO SCH (09:24)
[2023-09-02] MEDS: METOPROLOL TARTRATE 25 MG TAB PO SCH (09:24)
== END 2023-09-02 10:17 | disposition home health service (06) ==
LOC: OR 05:46 → 4SSUR 05:47 → OR 05:47 → 4SSUR 10:23
PROVIDERS: ADMIT Orthopaedic Surgery; ATTEND Orthopaedic Surgery
DX: M47.22 Other spondylosis with radiculopathy, cervical region (principal); M48.02 Spinal stenosis, cervical region; M25.78 Osteophyte, vertebrae; R13.10 Dysphagia, unspecified; J44.1 Chronic obstructive pulmonary disease with (acute) exacerbation; J96.01 Acute respiratory failure with hypoxia; I25.10 Atherosclerotic heart disease of native coronary artery without angina pectoris; F32.A Depression, unspecified; E78.5 Hyperlipidemia, unspecified; I11.9 Hypertensive heart disease without heart failure; I25.2 Old myocardial infarction; Z56.0 Unemployment, unspecified; Z68.35 Body mass index [BMI] 35.0-35.9, adult; Z85.6 Personal history of leukemia; Z95.5 Presence of coronary angioplasty implant and graft; Z79.82 Long term (current) use of aspirin; Z79.899 Other long term (current) drug therapy
CPT/HCPCS: 96376 ×3; 96365; 96366; 96375 ×2; 93306; 97161; 80048; 85025; 72040; 72125; 71250; 22551; 22552; 22853 ×2; 20931; 20936; G0378 ×4; L0120; C1713; J2250; J0330; J0360; J1100; J0690; J2405; J2001; J3010; J1170 ×4; J2704

== ENCOUNTER → 2023-12-29 | Outpatient (CLI) | payer OTHER ==
--- NOTE | 2024-01-06 16:52 | MR ---
EXAMINATION TYPE: MR shoulder RT wo con DATE OF EXAM: 12/29/2023 COMPARISON: Outside radiograph 12/21/2023 HISTORY: 58-year-old male M25.511, Right shoulder pain and decreased range of motion due to fall 2 we eks ago TECHNIQUE: Multiplanar, multisequence imaging of the right shoulder is performed without contrast. FINDINGS: Limited detailed assessment of the intracapsular portion of the long head biceps tendon. The extracap sular portion remains intact with mild tenosynovial fluid. Heterogeneity of the subscapularis tendon suggesting tendinosis with the majority remaining intact. Moderate degenerative change at the AC joint with joint space narrowing, marginal spurring, capsular hypertrophy. There is moderate fluid within the subacromial/subdeltoid bursa with large full-thickness tear involv ing the entire supraspinatus tendon. There is contiguous tear to involve most of the infraspinatus te ndon. Intervening gap measures up to 3.6 cm long. High-grade partial-thickness tear involves some of the remaining posterior most infraspinatus tendon fibers. Reactive edema tracking along the supraspinatus and infraspinatus muscle bellies. No rotator cuff mus deb atrophy. The glenohumeral joint is intact. No discrete labral tear given nonarthrographic technique and no par alabral cyst. There is a mild glenohumeral joint effusion. No Hill-Sachs deformity or os acromiale. Prominent patchy red marrow is present and can be seen in setting of anemia, obesity, smoking, and ch ronic disease. IMPRESSION: 1. Large full-thickness rotator cuff tear involving the entire supraspinatus tendon and extending maritza k to involve most of the infraspinatus tendon. The remaining posterior infraspinatus tendon fibers sh ow a high-grade partial-thickness tear. 2. Reactive edema within the corresponding rotator cuff musculature without significant fatty atrophy . 3. Reactive moderate bursal effusion contiguous with the glenohumeral joint. 4. Moderate AC joint OA with some inferior spurring.
== END | disposition home or self-care (01) ==
LOC: RADMRIMAIN 11:05
PROVIDERS: ATTEND Orthopaedic Surgery
DX: M19.011 Primary osteoarthritis, right shoulder (principal); M25.411 Effusion, right shoulder; M75.121 Complete rotator cuff tear or rupture of right shoulder, not specified as traumatic

== ENCOUNTER 2024-02-10 07:45 | Day surgery (SDC) | payer OTHER ==
[2024-02-07 15:22] VITALS: BMI 33.2
--- NOTE | 2024-02-09 09:17 | P.HPOR ---
History of Present Illness H&P Date: 02/09/24 Chief Complaint: Right shoulder pain and weakness The patient is a 58-year-old tendon down male who presents with right shoulder pain after a fall on 12/19/2023. He slipped and fell landing on his right arm. He's had pain and weakness ever since. He is having a difficult time with any overhead activity. He is having night symptoms. He denies significant previous problems with right shoulder. Review of Systems As per HPI Past Medical History Past Medical History: Blood Disorder, Coronary Artery Disease (CAD), Cancer, Hyperlipidemia, Hypertension, Myocardial Infarction (NC), Osteoarthritis (OA) Additional Past Medical History / Comment(s): LEUKEMIA. "Couple of heart attacks." Last Myocardial Infarction Date:: 2012 History of Any Multi-Drug Resistant Organisms: None Reported Past Surgical History: Appendectomy, Heart Catheterization, Heart Catheterization With Stent, Orthopedic Surgery Additional Past Surgical History / Comment(s): Left shoulder rotator repair, right carpal tunnel surgery, neck surgery - C4-C6 anterior cervical decompression and fusion, 3 surgeries on feet for neuromas. Past Anesthesia/Blood Transfusion Reactions: No Reported Reaction Date of Last Stent Placement:: 2012 Smoking Status: Former smoker - Past Family History Mother Family Medical History: No Reported History Brother(s) Family Medical History: Hypertension Medications and Allergies Home Medications Medication Instructions Recorded Confirmed Type Metoprolol Tartrate [Lopressor] 25 mg PO BID #60 tab 03/05/14 02/07/24 Rx Atorvastatin [Lipitor] 80 mg PO HS 10/27/15 02/07/24 History buPROPion HCL [Wellbutrin XL] 300 mg PO QAM 10/27/15 02/07/24 History Enalapril Maleate [Vasotec] 20 mg PO BID 05/06/16 02/07/24 History Gabapentin [Neurontin] 800 mg PO TID 09/05/19 02/07/24 History Aspirin 81 mg PO DAILY chew 05/03/20 02/07/24 Rx Sennosides/Docusate Sodium [Senna 1 each PO DAILY PRN #20 capsule 09/01/23 02/07/24 Rx Plus 8.6-50 mg Softgel] Multivitamins, Thera [Multivitamin 1 tab PO DAILY 02/07/24 02/07/24 History (formulary)] Nilotinib HCl [Tasigna] 200 mg PO QAM 02/07/24 02/07/24 History Allergies Allergy/AdvReac Type Severity Reaction Status Date / Time No Known Allergies Allergy Verified 02/07/24 13:45 Physical Examination - Shoulder right Appearance: effusion Tenderness with palpation: anterior, bicipital groove Pain: with abduction, with forward flexion ROM: forward flexion: 100 degrees ROM: internal rotation: lower lumbar ROM: external rotation: 60 degrees Crepitus with motion: Yes Strength: abduction: 3/5 Strength: external rotation: 4/5 Tests: internal impingement tests: positive, external impingment tests: positive Results The patient is a well-developed well-nourished male proximal 5 foot 9, 220 pounds of endomorphic habitus. HEENT exam is nonfocal, neck is nontender. He is tender about the right shoulder anterior subacromial space. Active forward elevation 95, passive 150. Impingement test, Neer test, and speed tests are positive. His distal neurovascular appears intact in the right upper extremity. - Diagnostic results Shoulder MRI: image reviewed (Right shoulder MRI shows evidence of a retracted tear involving the supraspinatus.) Assessment and Plan Assessment: Acute right rotator cuff tear History of cervical fusion CML Plan: I talked to the patient at length regarding his condition along with treatment options. At this point he is quite symptomatic having pain and weakness after this acute injury. After a thorough discussion he opts to proceed with surgery. We will plan to proceed with right shoulder arthroscopy with possible rotator cuff repair/subacromial decompression/possible biceps tenotomy versus tenodesis. Risks and benefits were discussed at length in layman's terms. We will likely perform that as an outpatient procedure.
[2024-02-10] MEDS ORDERED: HYDROmorphone 0.5 MG/0.5 ML SYRINGE IVP PRN (08:19)
[2024-02-10] MEDS ORDERED: SCOPOLAMINE 1 MG/72 HR PATCH TRANSDERM ONE (08:19)
[2024-02-10] MEDS ORDERED: MIDAZOLAM 2 MG/2 ML VIAL IV PRN (08:19)
[2024-02-10] MEDS: ONDANSETRON 4 MG/2 ML VIAL IVP ONE (08:36)
[2024-02-10] MEDS: LACTATED RINGERS 1,000 ML IV SCH (08:36)
[2024-02-10] MEDS: DEXAMETHASONE SOD PHOSPHATE 4 MG/ML 1 ML VIAL IV ONE (08:36)
[2024-02-10] MEDS: MIDAZOLAM 2 MG/2 ML VIAL IVP ONE (08:53)
[2024-02-10] MEDS: fentaNYL (PF) 50 MCG/ML 2 ML AMP IVP ONE (08:53)
[2024-02-10] MEDS ORDERED: ROPIVACAINE 5 MG/ML 30 ML VIAL ONE (08:59)
[2024-02-10] MEDS ORDERED: PROPOFOL 10 MG/ML 20 ML VIAL IV ONE (08:59)
[2024-02-10] MEDS ORDERED: LIDOCAINE 1% INJ 10MG/ML (20 ML MDV) ONE (08:59)
[2024-02-10] MEDS ORDERED: PHENYLEPHRINE-0.9% NACL SYG 1,000 MCG/10 ML SYRINGE ONE (08:59)
[2024-02-10] MEDS ORDERED: ePHEDrine 50 MG/ML 1 ML VIAL ONE (08:59)
[2024-02-10] MEDS ORDERED: SUCCINYLCHOLINE CHLORIDE 200 MG/10 ML VIAL IV ONE (08:59)
[2024-02-10] MEDS ORDERED: GLYCOPYRROLATE 0.2 MG/ML 2 ML VIAL ONE (08:59)
[2024-02-10 09:06] LABS: African American GFR (CKD) 82 (>60 ml/min/1.73 sqM); Anion Gap 7 mmol/L; Blood Urea Nitrogen 22 mg/dL (9-20); Calcium 8.9 mg/dL (8.4-10.2); Carbon Dioxide 28 mmol/L (22-30); Chloride 105 mmol/L (98-107); Glucose 103 mg/dL (74-99); Non-African American GFR(CKD) 71 (>60 ml/min/1.73 sqM); Potassium 4.3 mmol/L (3.5-5.1); Sodium 140 mmol/L (137-145)
[2024-02-10] MEDS: EPINEPHrine (PF) 1 ML in SODIUM CHLORIDE 0.9% IRRIGATIO 3,000 ML IRRIGATION ONE ×4 (09:30)
[2024-02-10] MEDS: LACTATED RINGERS 1,000 ML IV ONE (10:41)
--- NOTE | 2024-02-10 11:53 | P.OP ---
Date of Procedure: 02/10/24 Preoperative Diagnosis: Right rotator cuff tear Postoperative Diagnosis: 5 cm retracted rotator cuff tear/high-grade partial-thickness tear intra- articular portion of the biceps Procedure(s) Performed: Right shoulder arthroscopic subacromial decompression/biceps tenodesis/rotator cuff repair Implants: Arthrex 4.75 mm swivel lock anchor x 5, 5.5 mm swivel lock anchor x 1 Anesthesia: REY, regional Surgeon: Tom Saravia Supervisory Training Specialist #1: Sergio Renee Estimated Blood Loss (ml): 10 Pathology: none sent Condition: stable Disposition: PACU Indications for Procedure: The patient is a 58-year-old male who presents after a recent injury to his right shoulder with significant pain and weakness. A discussion of the risks and benefits of operative intervention versus continued conservative measures was made with the patient. He opted to proceed with surgery. Operative risks include infection, neurovascular injury, development of blood clots, possible tendon rerupture, possible postoperative stiffness, possible need for subsequent procedures was discussed. Informed consent was obtained. Operative Findings: As below Description of Procedure: The patient was brought to the operating room, and after induction of general anesthesia was placed in a beachchair position. A preoperative interscalene block was placed for postoperative analgesia. I examined the right shoulder. There was no gross block to passive motion or gross glenohumeral instability. The right upper extremity was prepped and draped in normal fashion. The bony outlines the acromion, distal clavicle, and coracoid process were outlined with a skin marker. The glenohumeral joint was inflated with 50 mL of saline utilizing a spinal needle from posterior approach. A posterior portal was made through a 5 mm skin incision 1 cm medial and inferior to the posterior lateral border time. A blunt trocar was used to easily into the joint. Diagnostic arthroscopy was performed. An anterior portal was made just lateral to the coracoid process entering the joint above the subscapularis tendon. The subscapularis tendon appeared to be intact. Anterior labrum was intact. The inferior recess was inspected. The posterior labrum was intact. There was a high-grade partial-thickness tear of the long head of the biceps involving interarticular portion. It was elected to proceed with tenodesis at this point. The proximal biceps was captured with a loop and tack technique. This was released from the superior labrum with electrocautery and was allowed to retract to the bicipital groove. A 4.75 mm swivel lock anchor was then placed in the upper portion of the bicipital groove with secure fixation. On inspection the rotator cuff, a retracted large tear involving the supraspinatus and infraspinatus was noted. The arthroscope was placed into the subacromial space. A lateral portal was made 2 centimeters inferior to the anterior lateral border of the acromion. The rotator cuff was then mobilized with a traction suture. I was able to bring the tendon back to the greater tuberosity. The soft tissue on the undersurface of the acromion was debrided with a motorized shaver and electrocautery clearly defining the anterior medial and lateral borders as well as the distal clavicle. An anterior inferior acromioplasty was performed with a motorized deandra starting anterolateral, then extending this posteriorly, then extending this medially. I converted to a flat acromion and this was verified in the posterior and lateral viewing portals. The greater tuberosity was lightly decorticating with a shaver down to a bleeding bony surface. Multiple accessory portals made just off the lateral edge of the acromion for anchor placement and viewing. 3 anchors were then placed just off the articular surface with the appropriate starting awl. 4.75 mm anchors preloaded with #2 fiber tape were placed. Good purchase was obtained. These fiber tapes were then passed the rotator cuff with a scorpion suture passer. A lateral row was created crisscrossing these tapes. A 5.5 mm and 4.75 mm swivel lock anchor were then placed laterally after tensioning the sutures. Good purchase was obtained. Final arthroscopic view showed adequate compression at the footprint. The arthroscope was then removed. The portals were closed with simple 3-0 nylon sutures. A sterile dressing was applied in addition to an abductor brace. The patient was then awoken from general anesthesia and transferred to recovery room in good condition. Blood loss was estimated at 10 mL. No complications were incurred. Sponge and needle counts were correct in the case. Sergio RAINES assisted and the major components of the case to include arm positioning, anchor placement, and rotator cuff repair.
[2024-02-10 12:12] VITALS: TEMP 96.9
[2024-02-10 12:55] VITALS: RESP 16
--- NOTE | 2024-02-10 13:11 | P.ANPRN ---
Procedure Note - Anesthesia - Nerve Block Performed Right Interscalene Single Time Out Performed: Yes ([id number]) Date of Procedure: 02/10/24 Procedure Start Time: 08:53 Procedure Stop Time: 08:57 Location of Patient: PreOp Indication: Acute Post-Operative Pain, Requested by Surgeon Specifically requested for management of pain by : Tom Saravia Sedation Type: Sedate with meaningful contact maintained Preparation: Sterile Prep Position: Supine Catheter: None Needle Types: Pajunk Needle Gauge: 21 Ultrasound used to visualize needle placement: Yes Ultrasound used to observe medication spread: Yes Injectate: 0.5% Ropivacaine (see comment for volume) (30cc) Blood Aspirated: No Pain Paresthesia on Injection Noted: No Resistance on Injection: Normal Image Stored and Saved: Yes Events: Uneventful and Well Tolerated
[2024-02-10 13:37] VITALS: BP 134/88; PULSE 66
== END 2024-02-10 13:40 | disposition home or self-care (01) ==
LOC: OR 07:45
PROVIDERS: ATTEND Orthopaedic Surgery
DX: M75.111 Incomplete rotator cuff tear or rupture of right shoulder, not specified as traumatic (principal); M75.41 Impingement syndrome of right shoulder; M19.90 Unspecified osteoarthritis, unspecified site; I25.2 Old myocardial infarction; I25.10 Atherosclerotic heart disease of native coronary artery without angina pectoris; I10 Essential (primary) hypertension; E78.5 Hyperlipidemia, unspecified; G89.18 Other acute postprocedural pain; Z87.891 Personal history of nicotine dependence; Z79.899 Other long term (current) drug therapy
CPT/HCPCS: 64415; 80048; 29826; 29827; 29828; C1713 ×5; C1894; J2250; J0330; J1100; J0690; J2405; J0171; J2001; J3010; J2795; J2704; J2371

== ENCOUNTER → 2024-07-18 | Outpatient (CLI) | payer MEDICARE, OTHER ==
[2024-07-18 14:53] LABS: African American GFR (CKD) 87 (>60 ml/min/1.73 sqM); Blood Urea Nitrogen 25 mg/dL (9-20); Non-African American GFR(CKD) 75 (>60 ml/min/1.73 sqM)
--- NOTE | 2024-07-18 15:28 | CT ---
EXAMINATION TYPE: CT angio chest CT DLP: 1017 mGycm, Automated exposure control for dose reduction was used. DATE OF EXAM: 07/18/2024 3:21 PM COMPARISON: CT chest 08/31/2023, 04/21/2020 CLINICAL INDICATION:Male, 58 years old with history of I77.819 AORTIC ECTASIA, UNSPECIFIED SITE; AORT IC ECTASIA TECHNIQUE/CONTRAST: CTA scan of the thorax is performed without and with IV Contrast, patient injected with 100 mL of Iso mesha 370, MIP images are created and reviewed. FINDINGS: Lungs/Pleura: No evidence of focal consolidation, pleural effusion or pneumothorax. Peripheral right upper lobe 3 mm pulmonary nodule (series 9, image 53). Peripheral left upper lobe 3 mm pulmonary nodu le (series 9, image 44). These are stable prior exams and consider benign. No new or enlarging pulmon candace nodules. Airway: Large airways are patent. Heart: Heart is within normal limits for size. No pericardial effusion. Moderate coronary arterial ca lcifications. Vasculature: Normal caliber aortic root measuring 3.3 cm. Normal caliber descending thoracic aorta me asuring 2.5 cm. Stable ascending thoracic aortic aneurysm measuring 4.2 cm. No extension into the arc h. Conventional three-vessel aortic arch. No evidence of intramural hematoma or dissection. Pulmonary artery is normal in caliber. No filling defects to suggest pulmonary emboli. Mediastinum: No evidence of adenopathy. Musculoskeletal: No acute osseous abnormalities Soft Tissues: Unremarkable. Lower neck: No significant findings. Upper Abdomen: No significant findings. IMPRESSION: Stable ascending thoracic aneurysm measuring up to 4.2 cm. [facility], , 07/18/2024 3:26 PM
== END | disposition home or self-care (01) ==
LOC: RADCTMAIN 13:59
PROVIDERS: ATTEND Internal Medicine Interventional Cardiology
DX: I71.21 Aneurysm of the ascending aorta, without rupture (principal)
CPT/HCPCS: 36415; 71275; 82565; 84520

== ENCOUNTER → 2024-11-20 | Outpatient (CLI) | payer MEDICARE ==
--- NOTE | 2024-11-21 19:24 | MR ---
EXAMINATION TYPE: MR shoulder LT wo con DATE OF EXAM: 11/20/2024 1:51 PM COMPARISON: 12/30/2015 CLINICAL INDICATION: Male, 58 years old with history of M25.512 PAIN IN LEFT SHOULDER, Left shoulder pain IV Contrast: cc (None if empty) TECHNIQUE: Multiplanar, multisequence imaging of the left shoulder is performed without contrast. FINDINGS: There is marked osteoarthritic changes of the AC joint and marked subacromial bursitis. There is mild subdeltoid bursitis as well. There appear to be post surgical changes of the rotator cuff repair within the lateral humeral head. There are multiple intrasubstance tears of the supraspinatus tendon without retraction. There are mil d rim rent tears of the infraspinatus tendon and there is an intrasubstance tear of the infraspinatus tendon at the musculotendinous junction. The subscapularis tendon is intact. The biceps tendon is normal in signal intensity and position within the bicipital groove and the lexi ps anchor is intact. There is abnormal signal intensity in the superior cartilaginous labrum suggested probable SLAP injur y. IMPRESSION: 1. Post surgical changes of prior rotator cuff repair. 2. Tears of the infraspinatus and supraspinatus tendons without retraction as described above. 3. Marked degenerative change of the AC joint. 4. Subacromial and subdeltoid bursitis. 5. Probable SLAP injury involving the superior cartilaginous labrum. [facility], , 11/21/2024 7:21 PM
== END | disposition home or self-care (01) ==
LOC: RADMRIMAIN 13:06
PROVIDERS: ATTEND Orthopaedic Surgery
DX: M19.012 Primary osteoarthritis, left shoulder (principal); M75.112 Incomplete rotator cuff tear or rupture of left shoulder, not specified as traumatic; M75.52 Bursitis of left shoulder; Z98.890 Other specified postprocedural states

== ENCOUNTER → 2025-01-04 | Outpatient (CLI) | payer MEDICARE ==
--- NOTE | 2025-01-04 13:16 | CT ---
EXAMINATION TYPE: CT angio chest CT DLP: 1137.9 mGycm, Automated exposure control for dose reduction was used. DATE OF EXAM: 01/04/2025 1:09 PM COMPARISON: CTA chest 07/18/2024, CT chest 08/31/2023, 04/21/2020 CLINICAL INDICATION:Male, 59 years old with history of I71.20 THORACIC AORTIC ANEURYSM, WITHOUT RUPTU RE,; Thoracic aortic aneurysm. TECHNIQUE/CONTRAST: CTA scan of the thorax is performed without and with IV Contrast, patient injected with 100ml mL of I sovue 370. 3D reconstructed images are created on an independent workstation and reviewed.. FINDINGS: Lungs/Pleura: No evidence of focal consolidation, pleural effusion or pneumothorax. Stable peripheral right upper lobe 3 mm pulmonary nodule (series 6, image 59). Stable peripheral left upper lobe 3 mm pulmonary nodule (series 6, image 44). No new or enlarging pulmonary nodules. Airway: Large airways are patent. Heart: Heart is within normal limits for size. No pericardial effusion. Moderate coronary arterial ca lcifications. Vasculature: Normal caliber aortic root measuring 3.6 cm. Normal caliber descending thoracic aorta me asuring 2.5 cm. Stable ascending thoracic aortic aneurysm measuring 4.2 cm. No extension into the arc h. Conventional three-vessel aortic arch. No evidence of intramural hematoma or dissection. Pulmonary artery is normal in caliber. No filling defects to suggest pulmonary emboli. Mediastinum: No evidence of adenopathy. Musculoskeletal: No acute osseous abnormalities. Partial visualization of anterior cervical fusion ho wever. Soft Tissues: Unremarkable. Lower neck: Right thyroid lobe subcentimeter hypodense nodule. Upper Abdomen: Suggested hepatic steatosis. IMPRESSION: Stable ascending thoracic aneurysm measuring up to 4.2 cm. [facility], , 01/04/2025 1:14 PM
== END | disposition home or self-care (01) ==
LOC: RADCTMAIN 12:33
PROVIDERS: ATTEND Internal Medicine Interventional Cardiology
DX: I71.21 Aneurysm of the ascending aorta, without rupture (principal)
CPT/HCPCS: 71275; Q9967